=== PATIENT | female | born 1980 | race Caucasian/White ===

== ENCOUNTER 2019-06-21 06:37 | Inpatient (IN) | payer OTHER ==
[~2019-06-21 06:37] MED LIST: CITRIC ACID/SODIUM CITRATE 30 ML UNIT-DOSE CUP PO ONE; ELECTROLYTE-148 SOLN 1,000 ML IV ONE; ELECTROLYTE-148 SOLN 1,000 ML IV SCH
[2019-06-21 07:40] VITALS: BMI 32.8
[2019-06-21] MEDS ORDERED: ONDANSETRON 4 MG/2 ML VIAL IVPUSH PRN (08:03)
[2019-06-21] MEDS ORDERED: OXYTOCIN 20 UNITS in 0.9% NS 20 UNIT/1,000 ML INFUS.BAG IV ONE ×2 (08:05→09:44)
[2019-06-21] MEDS ORDERED: morphine SULFATE/PF 0.5 MG/ML (2cc Syringe - QUVA) ONE (08:10)
[2019-06-21] MEDS ORDERED: ePHEDrine SULFATE 50 MG/1 ML AMPULE ONE (08:11)
--- NOTE | 2019-06-21 08:17 | HP ---
Past Medical History - Primary Care Physician PCP:: Dennys Hinojosa - Admission Chief Complaint: 39yo P2 with at EGA 40w1d admitted for repeat LT C/S and BTL. 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: Alzheimer's, CVA, Dementia, Migraine, Multiple Sclerosis, Peripheral Neuropathy, Parkinson's, Seizure, Syncope, TIA, Vertigo, Other Cardiovascular: No: AFIB, Aneurysm, Aortic Insufficiency, Aortic Stenosis, CAD, CHF, Deep Vein Thrombosis, HTN, Hyperlipdemia, MT, Mitral Insufficiency, Mitral Stenosis, Murmur, Pulmonary Hypertension, Other Pulmonary: No: Asthma, Bronchitis, Cancer, COPD, O2 Dependent, Pneumonia, Previously Intubated, Pulmonary Embolus, Pulmonary Fibrosis, Sleep Apnea, Other Gastrointestinal: No: Ascites, Cancer, Constipation, Crohn's Disease, Diverticulitis, Diverticulosis, Esophageal Varices, Gastritis, GERD, GI Bleed, Hemorrhoids, Hiatal Hernia, Inflamatory Bowel Disease, Irritable Bowel Disease, Pancreatitis, Peptic Ulcer Disease, Ulcerative Colitis, Other Hepatobiliary: No: Cirrhosis, Cholelithiasis, Cholecystitis, Choledocholithiasis , Hepatitis A, Hepatitis B, Hepatitis C, Other Renal/: No: Renal Failure, Renal Inusuff, BPH, Cancer, Hematuria, Hemodialysis , Neurogenic Bladder, Renal Calculi, UTI, Other Reproductive: No: Ectopic , Endometriosis, Fibroids, PID, Polycystic Ovary Syndrome, Postmenopausal, Other ...: 4 ...Para: 2 ...Term: 2 ...: 0 ...Spon : 1 ...Induced : 0 ...Multiple Gestation: 0 ...LMP: 09/13/18 ... Weeks Gestation by Dates: 40.1 ...EDC by Dates: 06/20/19 ...EDC by Sono: 06/20/19 Heme/Onc: No: Anemia, B12 Deficiency, Bleeding Disorder, Cancer, Current Chemotherapy, Current Radiation Therapy, Hemochromatosis, Hypercoaguable State, Myeloproliferative Synd, Sickle Cell Disease, Sickle Cell Trait, Thrombocytopenia, Other Infectious Disease: No: AIDS, C-Diff, Herpes Zoster, HIV, MRSA, STD's, Tuberculosis, VREF, Other Psych: No: Addictions, Anxiety, Bipolar, Depression, Panic, Psychosis, Schizophrenia, Other Musculoskeletal: No: Bursitis, Chronic low back pain, Hemiparesis, Hemiplegia, Osteoarthritis, Paraplegia, Other Rheumatology: No: Fibromyalgia, Gout, Lupus, Rheumatoid Arthritis, Sarcoidosis, Vasculitis, Other ENT: No: Allergic Rhinitis, Sinusitis, Other Endocrine: No: Denver's Disease, Celia's Disease, Diabetes Insipidus, Diabetes Mellitus, Hyperparathyroidism, Hyperthyroidism, Hypothyroidism, Osteopenia, SIADH, Other Dermatology: No: Basal Cell, Cellulitis, Eczema, Melanoma, Psoriasis, Squamous Cell, Other - Past Surgical History Past Surgical History: Yes: (x2) Hx Myomectomy: No Hx Transabdominal Cerclage: No - Smoking History Smoking history: Never smoked Have you smoked in the past 12 months: No - Alcohol/Substance Use Hx Alcohol Use: No History of Substance Use: reports: None - Social History Usual Living Arrangement: Yes: With Spouse, With Child ADL: Independent 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 History of Recent Travel: No Home Medications - Allergies Allergies/Adverse Reactions: Allergies Allergy/AdvReac Type Severity Reaction Status Date / Time No Known Allergies Allergy Verified 10/27/14 10:32 - Home Medications Home Medications: Ambulatory Orders Vitamins (Sjr) - 1 tab PO DAILY 10/27/14 Acetaminophen [Tylenol .Regular Strength -] 650 mg PO Q6H PRN #0 tablet Ibuprofen [Motrin -] 600 mg PO Q6H PRN #0 tablet 11/02/14 Oxycodone HCl/Acetaminophen [Percocet 5-325 mg Tablet -] 1 - 2 tab PO Q6H #20 tab MDD 6 07/05/16 Family Disease History - Family Disease History Family Disease History: Diabetes: Mother (htn), Other: Mother Review of Systems - Review of Systems Constitutional: reports: No Symptoms Eyes: reports: No Symptoms HENT: reports: No Symptoms Neck: reports: No Symptoms Cardiovascular: reports: No Symptoms Respiratory: reports: No Symptoms Gastrointestinal: reports: No Symptoms Genitourinary: reports: No Symptoms Breasts: reports: No Symptoms Reported Musculoskeletal: reports: No Symptoms Integumentary: reports: No Symptoms Neurological: reports: No Symptoms Endocrine: reports: No Symptoms Hematology/Lymphatic: reports: No Symptoms Psychiatric: reports: No Symptoms Pain Intensity: 0 Physical Exam - Maternity Vital Signs: Vital Signs Temperature 98.2 F 06/21/19 07:00 Pulse Rate 83 06/21/19 07:00 Respiratory Rate 18 06/21/19 07:00 Blood Pressure 109/68 06/21/19 07:00 O2 Sat by Pulse Oximetry (%) Constitutional: Yes: Well Nourished, No Distress, Calm Eyes: Yes: WNL, Conjunctiva Clear HENT: Yes: WNL, Atraumatic, Normocephalic Neck: Yes: WNL, Supple, Trachea Midline Cardiovascular: Yes: WNL, Regular Rate and Rhythm Lungs: Clear to auscultation, Normal air movement - Abdominal Exam/OB Fundal Height: 40 Number of Fetuses: Single Presentation: Vertex Contractions: No Heart Rate (range): 120 Heart Rate Location: Midline Category: I Accelerations: Non-Uniform Decelerations: None - Vaginal Exam/OB Vaginal Bleediing: No Speculum Exam: No Presentation: Vertex/Position - Physical Exam Musculoskeletal: Yes: WNL Extremities: Yes: WNL Edema: Yes Edema: LLE: Trace, RLE: Trace Integumentary: Yes: WNL Deep Tendon Reflex Grade: Normal +2 ...Motor Strength: WNL Psychiatric: Yes: WNL, Alert, Oriented Hemorrhage Risk Assessment - Risk Factors Medium Risk Factors: Yes: Prior , uterine surgery,or multiple laparotomies High Risk Factors: Yes: None Risk Score: 1 Risk Level: Medium Risk Imaging - Results Ultrasound: Report Reviewed Assessment/Plan 39yo P2 with at EGA 40w1d admitted for repeat LT C/S and BTL. We discussed the risks and benefits of C/S at length, including but not limited to scarring, pain, bleeding, infection, injury to underlying organs and structures , need for additional surgery to repair/treat any problems or complications, complications/injuries, etc. The pt verbalized her understanding and requested to proceed with surgery. We also discussed the risks and alternatives of BTL, including regret, bleeding, failed sterilization, etc. The pt is aware that all surgeries have risks and no guarantees can be provided.
[2019-06-21] MEDS ORDERED: ELECTROLYTE-148 SOLN 1,000 ML IV SCH (08:30)
[2019-06-21] MEDS ORDERED: ceFAZolin SODIUM 1 GM VIAL ONE (08:37)
[2019-06-21] MEDS ORDERED: WITCH HAZEL 50% (TUCKS) 40 PAD/JAR PAD TP PRN (09:56)
[2019-06-21] MEDS ORDERED: BENZOCAINE 28 GM HEMORRHOIDAL OINTMENT TP PRN (09:56)
[2019-06-21] MEDS ORDERED: BENZOCAINE 20% 57 GM BOTTLE TP PRN (09:56)
[2019-06-21] MEDS ORDERED: OXYTOCIN 20 UNITS in 0.9% NS 20 UNIT/1,000 ML INFUS.BAG IV SCH (10:00)
--- NOTE | 2019-06-21 10:04 | OP ---
Operative Note - Note: Operative Date: 06/21/19 Pre-Operative Diagnosis: Post term at EGA 40w1d. Prior C/S x 2. Sterilization Operation: Repeat LT C/S. BTL Findings: Normal uterus with very thin ROSS Normal tubes and ovaries Live baby boy in VTX presentation, no meconium in amniotic fluids, 9-9, Wt = 7lbs 9oz Post-Operative Diagnosis: Same as Pre-op Surgeon: Denyns Hinojosa Document Restorer: Jeancarlos Borja Anesthesiologist/JOURNALISM INTERN: Kang Fang Anesthesia: Spinal Specimens Removed: Placenta, fragments of Fallopian tubes. Estimated Blood Loss (mls): 700 Drains & Tubes with Location: Hernandez cath Drains, Volume Out (mls): 400 Blood Volume Replaced (mls): 0 Fluid Volume Replaced (mls): 2,000 Operative Report Dictated: Yes
--- NOTE | 2019-06-21 11:27 | OP ---
DATE OF OPERATION: 06/21/2019 PREOPERATIVE DIAGNOSIS: Post term at estimated gestational age of 40 weeks and 1 day, previous 2 sections, sterilization. POSTOPERATIVE DIAGNOSIS: Post term at estimated gestational age of 40 weeks and 1 day, previous 2 sections, sterilization. PROCEDURE: Repeat low transverse section via Pfannenstiel skin incision, bilateral tubal ligation via modified [facility] method. SURGEON: Dennys Hinojosa MD CLAY MIXER: Jeancarlos Borja MD ANESTHESIOLOGIST: Kang Fang DO ANESTHESIA: Spinal. COMPLICATIONS: None. ESTIMATED BLOOD LOSS: 700 mL. INTRAVENOUS FLUIDS: 2000 mL. URINE OUTPUT: 400 mL of clear urine at the end of the procedure. PATHOLOGY: Placenta and fragments of both fallopian tubes. FINDINGS: Live baby boy in vertex presentation with no meconium in amniotic fluid. A nuchal cord was noted to be wrapped around once and was released without complications at delivery. Apgars 9/9. Baby's weight is 7 pounds 9 ounces. DESCRIPTION OF PROCEDURE: The patient was met preoperatively. Risks, benefits, alternatives of surgery were discussed in details. All questions were answered. The consent form was reviewed and signed. The risks of surgery were discussed, and the patient verbalized her understanding. The patient then required to proceed with the surgery. She was brought to the OR with the IV running. The patient was set on a surgical table. The spinal anesthesia was achieved without difficulty. The patient was then placed in a supine position with a leftward tilt. The level of the spinal anesthesia was checked and found to be adequate. The patient was prepped and draped in a usual sterile fashion. A Hernandez catheter was left to drain to gravity. A time-out was conducted as per standard protocol. The surgeons then proceeded with the operation. A Pfannenstiel skin incision was made with the knife along with the prior scar. The incision was taken down to the level of fascia. The fascia was incised in the midline. The incision was extended bilaterally using Mendes scissors. The fascia was then dissected away from the rectus muscles superiorly and inferiorly using sharp dissection. The rectus muscles were in the midline. The peritoneum was identified and entered sharply. The peritoneal incision was extended superiorly and inferiorly using Metzenbaum scissors. The bladder peritoneum was incised over the lower uterine segment. The bladder was then dissected away from the uterus using sharp dissection. The bladder was retracted downwards with the Sylvia retractor. The lower uterine segment was noted to be very thin. The lower uterine segment was incised with a knife. The incision was extended bilaterally using bandage scissors. The baby was delivered from vertex presentation without complications. A loose nuchal cord was noted to be wrapped around once and released without difficulty. The baby was crying spontaneously at delivery. The umbilical cord blood was clamped and cut. A segment of the umbilical cord was secured for umbilical cord blood gas. The baby was handed to the awaiting marketing information analyst. The placenta was removed manually and without complications. The uterus was cleared of all clots and debris. The uterine incision was repaired using a 0 Biosyn suture with a running, locking stitch. The uterine incision was then imbricated using a secondary level of closure with a 0 Biosyn suture. Good hemostasis was confirmed. The bladder peritoneum was then approximated using a 0 Biosyn suture with good hemostasis and approximation. The left fallopian tube was found and followed to the fimbriated end. The midsection of the left fallopian tube was picked up with the Josee clamp. The midsection of the fallopian tube was then suture ligated and excised with good hemostasis. The right fallopian tube was then located and followed to the fimbriated end. The midportion of the right fallopian tube was picked up with the Josee clamps. It was then suture ligated and excised with good hemostasis. The operative site was then irrigated using copious amounts of normal saline. Once the saline was aspirated, good hemostasis was confirmed. The parietal peritoneum was then closed using a 2-0 chromic suture with a running stitch. The rectus muscles were approximated using several interrupted 2-0 chromic sutures. The subcutaneous tissues and Estephanie fascia were approximated using several interrupted 0 Vicryl sutures. The fascia was closed with a 0 Vicryl suture in a running stitch. The skin ACL with a 4-0 Biosyn suture using a subcutaneous stitch. Sponge, lap, and needle counts were correct. The patient tolerated procedure well and she was transferred to recovery room in stable condition and awake. Karina [id number]
[2019-06-21] MEDS: PRENATAL VITAMINS W/ FOLIC ACID TABLET (FP) PO SCH (12:00)
[2019-06-21] MEDS: ENOXAPARIN NA (PORCINE) 40 MG/0.4 ML DISP.SYRIN SQ SCH (12:00)
[2019-06-21] MEDS: IBUPROFEN 800 MG/8 ML IJ IVPB PRN ×2 (12:20→19:35)
[2019-06-21] MEDS: METHYLERGONOVINE MALEATE 0.2 MG/1 ML AMP IM PRN ×2 (15:32→18:50)
[2019-06-22] MEDS: IBUPROFEN 800 MG/8 ML IJ IVPB PRN (03:41)
--- NOTE | 2019-06-22 05:13 | PN ---
Post Progress Note - Subjective Subjective: Patient without acute complaints. No nasea or vomiting, passing flatus. No voiding, mckeon in place draining clear fluid No ambulation yet. Denies fevers or chills. Pain well controlled. Post Day: 1 Type of Delivery: Repeat C/S Vital Signs: Vital Signs Temperature 98.6 F 06/22/19 01:54 Pulse Rate 73 06/22/19 01:54 Respiratory Rate 18 06/22/19 01:54 Blood Pressure 112/62 06/22/19 01:54 O2 Sat by Pulse Oximetry (%) 99 06/21/19 11:25 Breast Exam: Yes: Soft Uterus: Yes: Fundus Firm, Fundus @ umbilicus Incision: Yes: Dressing dry and intact Abdomen/GI: Yes: Abdomen soft, Passing flatus. No: Abdominal Distention, Tender , Tolerating PO Lochia: Yes: Rubra Lochia, amount: Small Extremities: Yes: Calves non-tender, Edema (trace) Activity: Ambulating Assessment/Plan 39 yo POD # 1 s/p repeat CD + BTL, afebrile, vital signs stable doing well 1. Continue routine postoperative care. 2. Follow up AM CBC 3. Rh negative, s/p rhogam 4. Encourage ambulation and incentive spirometer use 5. Continue oral pain medication 6. Anticipate discharge home postoperative day #3 or #4
[2019-06-22 08:26] LABS: BASO % 0.2 % (0-2.0); EOS % 1.1 % (0-4.5); HEMATOCRIT 29.1 % (32.4-45.2); HEMOGLOBIN 9.9 GM/dL (10.7-15.3); LYMPH % 16.7 % (8-40); MCH 30.9 pg (25.7-33.7); MEAN CELL VOLUME 90.7 fl (80-96); MEAN PLT VOLUME 10.2 fl (7.5-11.1); MONO % 7.4 % (3.8-10.2); NEUT % 74.6 % (42.8-82.8); RBC 3.21 M/mm3 (3.60-5.2); WHITE BLOOD COUNT 10.6 K/mm3 (4.0-10.0)
[2019-06-22 08:46] LABS: PLATELET COUNT 132 K/MM3 (134-434)
[2019-06-22] MEDS: PRENATAL VITAMINS W/ FOLIC ACID TABLET (FP) PO SCH (09:13)
[2019-06-22] MEDS: ACETAMINOPHEN 325 MG TABLET (FP) PO PRN ×3 (09:13→20:11)
[2019-06-22] MEDS: ENOXAPARIN NA (PORCINE) 40 MG/0.4 ML DISP.SYRIN SQ SCH (09:14)
[2019-06-22] MEDS: SIMETHICONE 80 MG TAB.CHEW (FP) PO PRN ×2 (09:20→16:09)
[2019-06-22] MEDS ORDERED: BISACODYL 10 MG SUPP.RECT RC PRN (09:57)
[2019-06-22] MEDS: IBUPROFEN 600 MG TABLET (FP) PO PRN ×4 (12:02→23:50)
--- NOTE | 2019-06-22 16:14 | PN ---
Progress Note (short form) - Note Progress Note: Anesthesiology Post-op 39 y.o. woman POD#1 s/p C/S under spinal. Pt. is doing well. Pain under control. No h/a. Spinal resolved. VSS. 39 y.o. woman with stable post-operative course. Continue management as per primary team.
[2019-06-22] MEDS: SENNOSIDES/DOCUSATE COMBO (SENNA PLUS) TABLET (UD) PO PRN (21:18)
--- NOTE | 2019-06-22 22:57 | PN ---
Progress Note (short form) - Note Progress Note: Patient states desires circumcision for . Discussed risks including infection, bleeding, damage to tip of penis, and unsatisfactory result, resulting in surgical repair or repeat circumcision. Patient expressed understanding and consents to procedure. Reviewed infants chart, cleared for circumcision and normal genitalia per retail sales vitamin consultant, Dr. Pereira
[2019-06-22] MEDS: oxyCODONE HCL 5 MG TABLET PO PRN (23:53)
--- NOTE | 2019-06-23 07:06 | PN ---
Post Progress Note - Subjective Subjective: Patient without acute complaints. Reports tolerating oral intake without nausea or vomiting. Ambulating without dizziness. Denies fevers or chills. Pain well controlled with oral pain medication. without difficulty. Passing flatus. Post Day: 2 Type of Delivery: Repeat C/S Vital Signs: Vital Signs Temperature 98.2 F 06/22/19 20:17 Pulse Rate 74 06/22/19 20:17 Respiratory Rate 20 06/22/19 20:17 Blood Pressure 115/65 06/22/19 20:17 O2 Sat by Pulse Oximetry (%) 99 06/21/19 11:25 Breast Exam: Yes: Soft Uterus: Yes: Fundus Firm, Fundus below umbilicus Incision: Yes: Sutures intact. No: Redness, Oozing Abdomen/GI: Yes: Abdomen soft, Abdominal Distention, Tender (mild incisional), Passing flatus, Tolerating PO Lochia: Yes: Rubra Lochia, amount: Moderate Extremities: Yes: Calves non-tender, Edema (trace) Activity: Ambulating - Labs Labs: CBC WBC 10.6 K/mm3 (4.0-10.0) H 06/22/19 07:25 RBC 3.21 M/mm3 (3.60-5.2) L 06/22/19 07:25 Hgb 9.9 GM/dL (10.7-15.3) L 06/22/19 07:25 Hct 29.1 % (32.4-45.2) L D 06/22/19 07:25 MCV 90.7 fl (80-96) 06/22/19 07:25 MCH 30.9 pg (25.7-33.7) 06/22/19 07:25 MCHC 34.0 g/dl (32.0-36.0) 06/22/19 07:25 RDW 14.0 % (11.6-15.6) 06/22/19 07:25 Plt Count 132 K/MM3 (134-434) L 06/22/19 07:25 MPV 10.2 fl (7.5-11.1) 06/22/19 07:25 Absolute Neuts (auto) 7.9 K/mm3 (1.5-8.0) 06/22/19 07:25 Neutrophils % 74.6 % (42.8-82.8) 06/22/19 07:25 Lymphocytes % 16.7 % (8-40) D 06/22/19 07:25 Monocytes % 7.4 % (3.8-10.2) 06/22/19 07:25 Eosinophils % 1.1 % (0-4.5) 06/22/19 07:25 Basophils % 0.2 % (0-2.0) 06/22/19 07:25 Nucleated RBC % 0 % (0-0) 06/22/19 07:25 Assessment/Plan 39 yo POD # 2 s/p repeat CD + BTL, afebrile, vital signs stable doing well 1. Continue routine postoperative care. 2. Encourage ambulation and incentive spirometer use 3. Continue oral pain medication 4. Anticipate discharge home postoperative day #3 or #4
[2019-06-23] MEDS: ACETAMINOPHEN 325 MG TABLET (FP) PO PRN ×4 (07:33→21:04)
[2019-06-23] MEDS: SIMETHICONE 80 MG TAB.CHEW (FP) PO PRN ×4 (07:33→21:03)
[2019-06-23] MEDS: IBUPROFEN 600 MG TABLET (FP) PO PRN ×4 (07:34→21:04)
[2019-06-23] MEDS: ENOXAPARIN NA (PORCINE) 40 MG/0.4 ML DISP.SYRIN SQ SCH (09:45)
[2019-06-23] MEDS: PRENATAL VITAMINS W/ FOLIC ACID TABLET (FP) PO SCH (09:45)
[2019-06-23] MEDS: SENNOSIDES/DOCUSATE COMBO (SENNA PLUS) TABLET (UD) PO PRN (21:07)
[2019-06-23] MEDS: oxyCODONE HCL 5 MG TABLET PO PRN (23:29)
[2019-06-24 07:04] LABS: BASO % 0.4 % (0-2.0); EOS % 2.3 % (0-4.5); HEMATOCRIT 28.9 % (32.4-45.2); MCH 31.3 pg (25.7-33.7); MCHC 34.5 g/dl (32.0-36.0); MEAN CELL VOLUME 90.8 fl (80-96); MEAN PLT VOLUME 9.6 fl (7.5-11.1); NEUT % 58.3 % (42.8-82.8); PLATELET COUNT 176 K/MM3 (134-434); RBC 3.18 M/mm3 (3.60-5.2); RDW 14.3 % (11.6-15.6)
[2019-06-24] MEDS: IBUPROFEN 600 MG TABLET (FP) PO PRN (08:33)
[2019-06-24] MEDS: ACETAMINOPHEN 325 MG TABLET (FP) PO PRN ×3 (08:34→18:14)
[2019-06-24] MEDS: ENOXAPARIN NA (PORCINE) 40 MG/0.4 ML DISP.SYRIN SQ SCH (09:29)
[2019-06-24] MEDS: PRENATAL VITAMINS W/ FOLIC ACID TABLET (FP) PO SCH (09:29)
--- NOTE | 2019-06-24 11:11 | PN ---
Post Progress Note - Subjective Subjective: Doing well. No complaints. Ambulating w/o problems. Urinating w/o problems. Passed flatus and had BM. Pain is well controlled. Breast feeding and supplemented. Post Day: 3 Type of Delivery: Repeat C/S Vital Signs: Vital Signs Temperature 98.2 F 06/24/19 10:00 Pulse Rate 67 06/24/19 10:00 Respiratory Rate 20 06/24/19 10:00 Blood Pressure 109/65 06/24/19 10:00 O2 Sat by Pulse Oximetry (%) 99 06/21/19 11:25 Breast Exam: Yes: Soft Uterus: Yes: Fundus Firm Incision: Yes: Sutures intact Abdomen/GI: Yes: Abdomen soft, Passing flatus, Tolerating PO Lochia: Yes: Rubra Lochia, amount: Small Extremities: Yes: Calves non-tender, Edema (trace) Perineum: Yes: Intact Activity: Ambulating - Labs Labs: CBC WBC 8.0 K/mm3 (4.0-10.0) 06/24/19 06:28 RBC 3.18 M/mm3 (3.60-5.2) L 06/24/19 06:28 Hgb 10.0 GM/dL (10.7-15.3) L 06/24/19 06:28 Hct 28.9 % (32.4-45.2) L 06/24/19 06:28 MCV 90.8 fl (80-96) 06/24/19 06:28 MCH 31.3 pg (25.7-33.7) 06/24/19 06:28 MCHC 34.5 g/dl (32.0-36.0) 06/24/19 06:28 RDW 14.3 % (11.6-15.6) 06/24/19 06:28 Plt Count 176 K/MM3 (134-434) D 06/24/19 06:28 MPV 9.6 fl (7.5-11.1) 06/24/19 06:28 Absolute Neuts (auto) 4.7 K/mm3 (1.5-8.0) 06/24/19 06:28 Neutrophils % 58.3 % (42.8-82.8) D 06/24/19 06:28 Lymphocytes % 33.0 % (8-40) D 06/24/19 06:28 Monocytes % 6.0 % (3.8-10.2) 06/24/19 06:28 Eosinophils % 2.3 % (0-4.5) D 06/24/19 06:28 Basophils % 0.4 % (0-2.0) 06/24/19 06:28 Nucleated RBC % 0 % (0-0) 06/24/19 06:28 Assessment/Plan 39yo P3 POD#3 s/p repeat LTC/S + BTL doing well, stable, afebrile. Asymptomatic for anemia. Post op care reviewed. Continue routine care. Ambulation encouraged Discharge instructions reviewed.
--- NOTE | 2019-06-24 11:14 | DS ---
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 Signs: Vital Signs Temperature 98.2 F 06/24/19 10:00 Pulse Rate 67 06/24/19 10:00 Respiratory Rate 20 06/24/19 10:00 Blood Pressure 109/65 06/24/19 10:00 O2 Sat by Pulse Oximetry (%) 99 06/21/19 11:25 Constitutional: Yes: Well Nourished, No Distress, Calm Eyes: Yes: WNL, Conjunctiva Clear HENT: Yes: WNL, Atraumatic, Normocephalic Neck: Yes: WNL, Supple, Trachea Midline Cardiovascular: Yes: WNL, Regular Rate and Rhythm Respiratory: Yes: WNL, Regular, CTA Bilaterally Gastrointestinal: Yes: WNL, Normal Bowel Sounds, Soft ...Rectal Exam: Yes: Deferred Renal/: Yes: WNL ....Post : Yes: Uterus firm, Uterus non-tender, Slight lochia rubra Breast(s): Yes: WNL Musculoskeletal: Yes: WNL Extremities: Yes: WNL Edema: Yes Edema: LLE: Trace, RLE: Trace Integumentary: Yes: WNL Wound/Incision: Yes: Clean/Dry, Well Approximated, Sutures Intact, Steri Strips , Open to air Neurological: Yes: WNL, Alert, Oriented ...Motor Strength: WNL Psychiatric: Yes: WNL, Alert, Oriented Labs: CBC, BMP 06/24/19 06:28 Delivery - Delivery Section: Repeat, Low Flap Transverse Type of Anesthesia: Spinal Episiotomy/Laceration: None EBL (cc): 700 Delivery, Single - Stages of Labor Date of Delivery: 06/21/19 Time of Delivery: 09:02 Time Placenta Delivered: 09:03 Placenta: Yes: Manual Removal, Normal Configuration - 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 Procedures: Principal: Repeat LT C/S Other Procedures: BTL Hospital Course: Normal postop and recovery Condition: Good - Instructions Diet, Activity, Other Instructions: Physical activity Resume your normal everyday activity as tolerated no heavy lifting or exercise until seen by your surgeon. You may walk unlimited soraya of and climb stairs. You may resume driving the car when you feel safe and comfortable behind the wheel. No sexual activity as instructed. Wound care If you have a bandage, leave it on, and keep dry for 48-72 hours. After that time discard the outer bandage. If they are tapes on the skin under the out of bandage leave them in place. They will peel off in the next 7 to 10 days. Do Not Peel them off. You may shower the day after surgery. If there are tapes present on the skin, you may shower over them. Diet There are no dietary restrictions. Eat healthy, high-fiber foods. Drink 6 to 8 glasses of liquid each day. This will assist in keeping your bowels are regular. Pain management You may take Tylenol or acetaminophen or Ibuprofen (for example, Motrin, Advil etc.) from my pain prescription medication is ordered should be taken as prescribed for moderate to severe pain. Call MD for any of the following: Severe pain not relieved by medication Fever of 101 or higher Excessive bleeding or drainage on dressing Inability to urinate Referrals: Dennys Hinojosa MD [Staff Physician] - Disposition: HOME - Home Medications Comprehensive Discharge Medication List: Ambulatory Orders Vitamins (Sjr) - 1 tab PO DAILY 10/27/14 Acetaminophen [Tylenol .Regular Strength -] 650 mg PO Q6H PRN #0 tablet Ibuprofen [Motrin -] 600 mg PO Q6H PRN #0 tablet 11/02/14 Oxycodone HCl/Acetaminophen [Percocet 5-325 mg Tablet -] 1 - 2 tab PO Q6H #20 tab MDD 6 07/05/16
[2019-06-24] MEDS: IBUPROFEN 200 MG TABLET PO PRN ×3 (12:21→21:58)
[2019-06-24] MEDS: SIMETHICONE 80 MG TAB.CHEW (FP) PO PRN ×2 (18:14→21:58)
[2019-06-24] MEDS ORDERED: oxyCODONE HCL 5 MG TABLET PO PRN (21:35)
[2019-06-25] MEDS: SIMETHICONE 80 MG TAB.CHEW (FP) PO PRN (05:42)
[2019-06-25] MEDS: ACETAMINOPHEN 325 MG TABLET (FP) PO PRN ×2 (05:42→11:13)
[2019-06-25] MEDS: IBUPROFEN 200 MG TABLET PO PRN ×2 (05:42→11:13)
--- NOTE | 2019-06-25 09:53 | PN ---
Post Progress Note - Subjective Subjective: Patient without acute complaints. Reports tolerating oral intake without nausea or vomiting. Ambulating without dizziness. Denies fevers or chills. Pain well controlled with oral pain medication. without difficulty. Passing flatus. Post Day: 4 Type of Delivery: Repeat C/S Vital Signs: Vital Signs Temperature 98.7 F 06/24/19 22:00 Pulse Rate 65 06/24/19 22:00 Respiratory Rate 18 06/24/19 22:00 Blood Pressure 128/71 06/24/19 22:00 O2 Sat by Pulse Oximetry (%) 99 06/21/19 11:25 Breast Exam: Yes: Soft Uterus: Yes: Fundus Firm Incision: Yes: Sutures intact Abdomen/GI: Yes: Abdomen soft, Passing flatus, Tolerating PO Lochia: Yes: Rubra Lochia, amount: Small Extremities: Yes: Calves non-tender Perineum: Yes: Intact Activity: Ambulating - Labs Labs: CBC WBC 8.0 K/mm3 (4.0-10.0) 06/24/19 06:28 RBC 3.18 M/mm3 (3.60-5.2) L 06/24/19 06:28 Hgb 10.0 GM/dL (10.7-15.3) L 06/24/19 06:28 Hct 28.9 % (32.4-45.2) L 06/24/19 06:28 MCV 90.8 fl (80-96) 06/24/19 06:28 MCH 31.3 pg (25.7-33.7) 06/24/19 06:28 MCHC 34.5 g/dl (32.0-36.0) 06/24/19 06:28 RDW 14.3 % (11.6-15.6) 06/24/19 06:28 Plt Count 176 K/MM3 (134-434) D 06/24/19 06:28 MPV 9.6 fl (7.5-11.1) 06/24/19 06:28 Absolute Neuts (auto) 4.7 K/mm3 (1.5-8.0) 06/24/19 06:28 Neutrophils % 58.3 % (42.8-82.8) D 06/24/19 06:28 Lymphocytes % 33.0 % (8-40) D 06/24/19 06:28 Monocytes % 6.0 % (3.8-10.2) 06/24/19 06:28 Eosinophils % 2.3 % (0-4.5) D 06/24/19 06:28 Basophils % 0.4 % (0-2.0) 06/24/19 06:28 Nucleated RBC % 0 % (0-0) 06/24/19 06:28 Assessment/Plan 39yo P3 s/p Repeat c/section VSS, Afebrile Doing well Rh neg - RhoGam given D/C home NPV x 6wks instructed RTO 1 wk for incision check
[2019-06-25] MEDS: PRENATAL VITAMINS W/ FOLIC ACID TABLET (FP) PO SCH (10:08)
[2019-06-25] MEDS: ENOXAPARIN NA (PORCINE) 40 MG/0.4 ML DISP.SYRIN SQ SCH (10:08)
[2019-06-25 11:19] VITALS: BP 140/77; TEMP 98.5
[2019-06-25 11:53] VITALS: PULSE 62
--- NOTE | 2019-07-04 14:24 | PATH ---
Surgical Pathology Report Patient Name: MARK PATTON [facility]. Rec. 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 Specimen(s) Received A: PLACENTA B: PORTION OF LEFT FALLOPIAN TUBE C: PORTION OF RIGHT FALLOPIAN TUBE Clinical History 40.1 weeks x2 Final Diagnosis A. PLACENTA, : MATURE THIRD TRIMESTER PLACENTA (WEIGHT:415 GRAMS) SHOWING MILD ACUTE CHORIOAMNIONITIS AND TRIVESSEL UMBILICAL CORD. B. PORTION OF LEFT FALLOPIAN TUBE, TUBAL LIGATION: COMPLETE CROSS SECTION OF FALLOPIAN TUBE. C. PORTION OF RIGHT FALLOPIAN TUBE, TUBAL LIGATION: COMPLETE CROSS SECTION OF FALLOPIAN TUBE. Electronically Signed Jennifer Jama M.D. Gross Description A. The specimen is received fresh labeled "placenta" and is a 415 gram, 19 x 18 x 1.6 cm. placenta with attached membranes and umbilical cord. The attached membranes are glistening and translucent and insert marginally. The eccentrically attached umbilical cord measures 19 cm. in length and averages 1 cm. in diameter. No true knots or strictures are identified. Cut surface of the umbilical cord reveals 3 vessels. The surface is singh-blue with minimal fibrin deposition and appropriate caliber vessels. The maternal surface is red-brown with focal defects. Sectioning reveals red-brown, spongy parenchyma. No lesions are identified. Gas Analyst sections are submitted in three cassettes as follows: 1- membrane rolls and umbilical cord; 2-3- full thickness sections of placenta. B. Received fresh labeled "portion of left fallopian tube" is a 1.1 cm long by 0.4 cm in diameter portion of tissue consistent with a portion of fallopian tube. The fimbriated end is not identified. Sectioning reveals a pinpoint lumen. Entirely submitted in one cassette. C. Received fresh labeled "portion of right fallopian tube" is a 1.4 cm long by 0.4 cm in diameter portion of tissue consistent with a portion of fallopian tube. The fimbriated end is not identified. Sectioning reveals a pinpoint lumen. Entirely submitted in one cassette. KWAmelia/06/24/2019 aubrey/06/24/2019
== END 2019-06-25 12:50 | disposition home or self-care (01) | DRG 785 ==
LOC: JLDR 06:37 → J3W 11:50
PROVIDERS: ADMIT Obstetrics & Gynecology; ATTEND Obstetrics & Gynecology
PROC: 10D00Z1 Extraction of Products of Conception, Low, Open Approach (ICD-10-PCS; principal; 2019-06-21)
PROC: 0UB70ZZ Excision of Bilateral Fallopian Tubes, Open Approach (ICD-10-PCS; 2019-06-21)
PROC: 3E0334Z Introduction of Serum, Toxoid and Vaccine into Peripheral Vein, Percutaneous Approach (ICD-10-PCS; 2019-06-21)
DX: O34.211 Maternal care for low transverse scar from previous cesarean delivery (principal); N85.8 Other specified noninflammatory disorders of uterus; O48.0 Post-term pregnancy; Z3A.40 40 weeks gestation of pregnancy; Z37.0 Single live birth; Z30.2 Encounter for sterilization; Z29.13 Encounter for prophylactic Rho(D) immune globulin
CPT/HCPCS: 36415; 36600; 82803; 85025; 85461; 86999; 88302-TC; 88307-TC

== ENCOUNTER 2019-06-28 10:48 | Inpatient (IN) | payer OTHER ==
[2019-06-28 11:05] VITALS: BMI 31.6
--- NOTE | 2019-06-28 11:57 | PDOC ---
History of Present Illness - General Chief Complaint: Shortness of Breath Stated Complaint: SOB Time Seen by Provider: 06/28/19 11:09 History Source: Patient Exam Limitations: No Limitations - History of Present Illness Initial Comments: Sunshine Whipple is a 39 yo F with no sig pmh who presents to the [facility] ER after she had a performed on 06/21 - 7 days ago with SOB, difficulty breathing, a dry cough, and difficulty lying flat. The patient had a and BTL on 06/21. 3 days later she began experiencing significant SOB and difficulty breathing. For the past 3 days she has not been able to lie flat on a bed and feels like she is choking if she tries to lie flat. Her symptoms improve when she leans forward. She has also been experiencing a dry cough for the past 3 days. Patient denies fevers, chills, back pain, headache, nausea, vomiting, flank pain , or LOC PCP: None Assistant Commissioner: None OB: Dr. Hinojosa Social Hx: Denies smoking, drinking, or other substance usage. PSH: 1 week prior Allergies: NKA, NKDA Past History - Past Medical History Allergies/Adverse Reactions: Allergies Allergy/AdvReac Type Severity Reaction Status Date / Time No Known Allergies Allergy Verified 06/28/19 11:05 Home Medications: Ambulatory Orders NK [No Known Home Medication] 06/28/19 Asthma: No Cancer: No Cardiac Disorders: No COPD: No Diabetes: No HTN: No Seizures: No Thyroid Disease: No - Surgical History Cholecystectomy: Yes (x3) - Suicide/Smoking/Psychosocial Hx Smoking History: Never smoked Have you smoked in the past 12 months: No Information on smoking cessation initiated: No Hx Alcohol Use: No Drug/Substance Use Hx: No Hx Substance Use Treatment: No Review of Systems - Review of Systems Able to Perform ROS?: Yes Comments:: CONSTITUTIONAL: Present: diaphoresis, generalized weakness, malaise Absent: fever, chills, loss of appetite HEENT: Absent: rhinorrhea, nasal congestion, throat pain, throat swelling, difficulty swallowing, mouth swelling, ear pain, eye pain, visual Changes CARDIOVASCULAR: Present: lightheadedness, peripheral edema Absent: chest pain, syncope, palpitations, irregular heart rate RESPIRATORY: Present: cough, shortness of breath, dyspnea with exertion, orthopnea, wheezing Absent: stridor, hemoptysis GASTROINTESTINAL: Absent: abdominal pain, abdominal distension, nausea, vomiting, diarrhea, constipation, melena, hematochezia GENITOURINARY: Absent: dysuria, frequency, urgency, hesitancy, hematuria, flank pain, genital pain MUSCULOSKELETAL: Absent: myalgia, arthralgia, joint swelling SKIN: Absent: rash, itching, pallor HEMATOLOGIC/IMMUNOLOGIC: Absent: easy bleeding, easy bruising, lymphadenopathy, frequent infections ENDOCRINE: Absent: unexplained weight gain, unexplained weight loss, heat intolerance, cold intolerance NEUROLOGIC: Absent: headache, focal weakness or paresthesias, dizziness, unsteady gait, seizure, mental status changes, bladder or bowel incontinence PSYCHIATRIC: Absent: anxiety, depression, suicidal or homicidal ideation, hallucinations. *Physical Exam - Vital Signs Last Vital Signs Temp Pulse Resp BP Pulse Ox 98.2 F 49 L 16 168/69 95 06/28/19 10:50 06/28/19 10:50 06/28/19 10:50 06/28/19 10:50 06/28/19 11:13 - Physical Exam Comments: GENERAL: Well developed, well nourished. Awake and alert. Mild acute distress. HEENT: Normocephalic, atraumatic. PERRLA, EOMI. No conjunctival pallor. Sclera are non- icteric. Moist mucous membranes. Oropharynx is clear. NECK: Supple. Full ROM. No lymphadenopathy. CARDIOVASCULAR: Bradycardic rate and regular rhythm. No murmurs, rubs, or gallops. Distal pulses are 2+ and symmetric. PULMONARY: There is clear evidence of respiratory distress. B/l gurgles and crackles throughout all lung palmer. No wheezing or rhonchi. ABDOMINAL: Soft. Non-tender. Non-distended. No rebound or guarding. No organomegaly. Normoactive bowel sounds. MUSCULOSKELETAL Normal range of motion at all joints. No bony deformities or tenderness. No CVA tenderness. EXTREMITIES: 2+ pitting edema bilaterally. No cyanosis. No clubbing. No calf tenderness. SKIN: Warm and dry. Normal capillary refill. No rashes. No jaundice. NEUROLOGICAL: Alert, awake, appropriate. No deficits to light touch in face, upper extremities and lower extremities. No motor deficits in the in face, upper extremities and lower extremities. Normal speech. Gait is normal without ataxia. PSYCHIATRIC: Cooperative. Good eye contact. Appropriate mood and affect. ED Treatment Course - LABORATORY CBC & Chemistry Diagram: 06/28/19 11:50 06/28/19 11:50 Medical Decision Making - Medical Decision Making Sunshine Whipple is a 39 yo F with no sig pmh who presents to the [facility] ER after she had a performed on 06/21 - 7 days ago with SOB, difficulty breathing, a dry cough, and difficulty lying flat. The patient had a and BTL on 06/21. 3 days later she began experiencing significant SOB and difficulty breathing. For the past 3 days she has not been able to lie flat on a bed and feels like she is choking if she tries to lie flat. Her symptoms improve when she leans forward. She has also been experiencing a dry cough for the past 3 days. Vital Signs Temp Pulse Resp BP Pulse Ox 98.2 F 52 L 20 143/71 98 06/28/19 10:50 06/28/19 13:15 06/28/19 13:15 06/28/19 13:15 06/28/19 13:15 DDx IBNLT: Most likely cardiomyopathy causing heart failure. Must rule out pre-eclampsia given recent labor and hypertensive state. Urine: Protein negative, supports lower likelihood of pre-eclampsia POCUS Bedside Echo: no pericardial effusion. Global wall motion bradycardia. No large focal wall motion abnormalities. Normal LV/RV ratio. EPSS 10 suggestive of heart failure. POCUS Lungs: There are bilateral diffuse B-lines and bilateral pleural effusions. Normal lung sliding. POCUS IVC: IVC is plump and non-collapsable suggestive of a fluid overload state. OB consult: Dr. Hinojosa is aware of the patient's current condition and will see the patient. Cardio Consult - Dr. Benitez: Spoke in depth and he agrees with current management. Plan: Lasix, nitro, formal echocardiogram, admit to telemetry. *DC/Admit/Observation/Transfer Diagnosis at time of Disposition: cardiomyopathy - Discharge Dispostion Condition at time of disposition: Guarded Decision to Admit order: Yes - Referrals Referrals: Dennys Hinojosa MD [Primary Care Provider] - - Patient Instructions - Post Discharge Activity
[2019-06-28 12:10] LABS: BASO % 0.4 % (0-2.0); EOS % 1.8 % (0-4.5); HEMATOCRIT 30.4 % (32.4-45.2); HEMOGLOBIN 10.4 GM/dL (10.7-15.3); LYMPH % 20.4 % (8-40); MCH 31.2 pg (25.7-33.7); MCHC 34.3 g/dl (32.0-36.0); MEAN PLT VOLUME 9.1 fl (7.5-11.1); NEUT % 72.4 % (42.8-82.8); PLATELET COUNT 221 K/MM3 (134-434); RBC 3.34 M/mm3 (3.60-5.2); RDW 14.3 % (11.6-15.6); WHITE BLOOD COUNT 8.6 K/mm3 (4.0-10.0)
--- NOTE | 2019-06-28 12:15 | PDOC ---
Documentation entered by Tiffanie Kevin SCRIBE, acting as scribe for Shantelle Guadalupe MD. Shantelle Guadalupe MD: This documentation has been prepared by the scribe, Tiffanie Kevin SCRIBE, under my direction and personally reviewed by me in its entirety. I confirm that the documentation accurately reflects all work, treatment, procedures, and medical decision making performed by me. Attending Attestation - Resident Resident Name: Juan Carlos Pérez - ED Attending Attestation I have performed the following: I have examined & evaluated the patient, The case was reviewed & discussed with the resident, I agree w/resident's findings & plan, Exceptions are as noted - HPI HPI: 06/28/19 11:48 The patient is a 39-year-old female who presents to the ED with shortness of breath, cough B/L LE swelling s/p 1 week ago, performed by Dr. Hinojosa. + orthopnea, + LOMELI. + shortness of breath at rest. No complications during her . Denies history of hypertension. Denies chest pain. Reports intermittent mild headache, but not currently having headache. Denies visual complaints. 06/28/19 12:06 06/28/19 12:12 - Physicial Exam PE: 06/28/19 11:48 GENERAL: Awake, alert, and fully oriented, in no acute distress HEAD: No signs of trauma EYES: PERRLA, EOMI, sclera anicteric, conjunctiva clear ENT: Auricles normal inspection, hearing grossly normal, nares patent, oropharynx clear without exudates. Moist mucosa LUNGS: Breath sounds equal, decreased air entry bilaterally. No wheezes, and no crackles HEART: Regular rate and rhythm, normal S1 and S2, no murmurs, bradycardic ABDOMEN: Soft, nontender, normoactive bowel sounds. No guarding, no rebound. No masses EXTREMITIES: Normal range of motion, + edema b/l No clubbing or cyanosis. No cords, erythema, or tenderness NEUROLOGICAL: Cranial nerves II through XII grossly intact. Normal speech SKIN: Warm, Dry, normal turgor, no rashes or lesions noted. 06/28/19 12:10 - Medical Decision Making 06/28/19 12:11 Pt presents to the ED complaining of shortness of breath. Differential includes post cardiomyopathy, less likely PE, less likely pre eclampsia. Will check labs and cardiac enzymes, CXR, admit. Will treat with lasix if CXR shows evidence of CHF. 06/28/19 12:14
[2019-06-28 12:34] LABS: ALBUMIN 2.6 g/dl (3.4-5.0); BILIRUBIN,TOTAL 0.5 mg/dL (0.2-1); BLOOD UREA NITROGEN 13.5 mg/dL (7-18); CALCIUM 8.4 mg/dL (8.5-10.1); CREATININE 0.7 mg/dL (0.55-1.3); N-TERMINAL BNP 1189.4 pg/ml (5-125); POTASSIUM 3.6 mmol/L (3.5-5.1); TOT PROT 5.8 g/dl (6.4-8.2)
[2019-06-28 12:41] LABS: EPI CELLS 3.2 /HPF (0-5/HPF); HYALINE CASTS 1 /lpf (0-8); URINE APPEARANCE Error; URINE BACTERIA 21.7 /hpf (NEGATIVE); URINE BILIRUBIN NEGATIVE (NEGATIVE); URINE COLOR YELLOW; URINE GLUCOSE (UA) NEGATIVE (NEGATIVE); URINE KETONE NEGATIVE (NEGATIVE); URINE LEUK ESTERASE 1+ (NEGATIVE); URINE NITRITE NEGATIVE (NEGATIVE); URINE PROTEIN NEGATIVE (NEGATIVE); URINE RBC 1 /hpf (0-4); URINE WBC 4 /hpf (0-5)
[2019-06-28] MEDS ORDERED: NITROGLYCERIN SUBLINGUAL 1/150 0.4 MG TAB SL ONE (12:58)
[2019-06-28] MEDS ORDERED: FUROSEMIDE 40 MG/4 ML INJECTABLE VIAL IVPUSH ONE (12:58)
[2019-06-28] MEDS ORDERED: NITROGLYCERIN SUBLINGUAL 1/150 0.4 MG TAB ONE (13:06)
[2019-06-28] MEDS ORDERED: FUROSEMIDE 40 MG/4 ML INJECTABLE VIAL ONE (13:06)
--- NOTE | 2019-06-28 14:54 | CON.CARD ---
Cardiology Consult (text) - Consultation Consultation Note: cc: sob hpi: 39 f no sig pmhx here with sob. Last week has and then over next few days noticed randolph, le edema, orthopnea. Sxs progressed over past few days so came to er. No cp, palps, dizzy loc pnd. No hx hrt dz or chf. pmh: per hpi psh: social: no tob fam: mom mi late 50s; no scd ros: per hpi; all others nl meds: Home Medications Medication Instructions Recorded NK [No Known Home Medication] 06/28/19 pe: Vital Signs Period Temp Pulse Resp BP Sys/Min Pulse Ox Last 24 Hr 98.2 F 49-52 16-20 136-168/69-89 95-100 nad no jvd rrr s1s2 no mrg cta bl nl eff aao3 1+le edema bl, no c/c abd nt nd pos bs no jaundice diaphoresis pos dp pt no carotid bruits Laboratory Last Values WBC 8.6 K/mm3 (4.0-10.0) 06/28/19 11:50 RBC 3.34 M/mm3 (3.60-5.2) L 06/28/19 11:50 Hgb 10.4 GM/dL (10.7-15.3) L 06/28/19 11:50 Hct 30.4 % (32.4-45.2) L 06/28/19 11:50 MCV 91.0 fl (80-96) 06/28/19 11:50 MCH 31.2 pg (25.7-33.7) 06/28/19 11:50 MCHC 34.3 g/dl (32.0-36.0) 06/28/19 11:50 RDW 14.3 % (11.6-15.6) 06/28/19 11:50 Plt Count 221 K/MM3 (134-434) D 06/28/19 11:50 MPV 9.1 fl (7.5-11.1) 06/28/19 11:50 Absolute Neuts (auto) 6.2 K/mm3 (1.5-8.0) 06/28/19 11:50 Neutrophils % 72.4 % (42.8-82.8) D 06/28/19 11:50 Lymphocytes % 20.4 % (8-40) D 06/28/19 11:50 Monocytes % 5.0 % (3.8-10.2) 06/28/19 11:50 Eosinophils % 1.8 % (0-4.5) 06/28/19 11:50 Basophils % 0.4 % (0-2.0) 06/28/19 11:50 Nucleated RBC % 0 % (0-0) 06/28/19 11:50 Sodium 145 mmol/L (136-145) 06/28/19 11:50 Potassium 3.6 mmol/L (3.5-5.1) 06/28/19 11:50 Chloride 114 mmol/L (98-107) H 06/28/19 11:50 Carbon Dioxide 23 mmol/L (21-32) 06/28/19 11:50 Anion Gap 7 MMOL/L (8-16) L 06/28/19 11:50 BUN 13.5 mg/dL (7-18) 06/28/19 11:50 Creatinine 0.7 mg/dL (0.55-1.3) 06/28/19 11:50 Est GFR (CKD-EPI)AfAm 127.39 06/28/19 11:50 Est GFR (CKD-EPI)NonAf 109.91 06/28/19 11:50 Random Glucose 99 mg/dL (74-106) 06/28/19 11:50 Calcium 8.4 mg/dL (8.5-10.1) L 06/28/19 11:50 Total Bilirubin 0.5 mg/dL (0.2-1) 06/28/19 11:50 AST 26 U/L (15-37) 06/28/19 11:50 ALT 43 U/L (13-61) 06/28/19 11:50 Alkaline Phosphatase 126 U/L (45-117) H 06/28/19 11:50 Troponin I < 0.02 ng/ml (0.00-0.05) 06/28/19 11:50 B-Natriuretic Peptide 1189.4 pg/ml (5-125) H 06/28/19 11:50 Total Protein 5.8 g/dl (6.4-8.2) L 06/28/19 11:50 Albumin 2.6 g/dl (3.4-5.0) L 06/28/19 11:50 Urine Color Yellow 06/28/19 12:13 Urine Appearance Error 06/28/19 12:13 Urine pH 6.0 (5.0-8.0) 06/28/19 12:13 Ur Specific [place] 1.021 (1.010-1.035) 06/28/19 12:13 Urine Protein Negative (NEGATIVE) 06/28/19 12:13 Urine Glucose (UA) Negative (NEGATIVE) 06/28/19 12:13 Urine Ketones Negative (NEGATIVE) 06/28/19 12:13 Urine Blood 2+ (NEGATIVE) H 06/28/19 12:13 Urine Nitrite Negative (NEGATIVE) 06/28/19 12:13 Urine Bilirubin Negative (NEGATIVE) 06/28/19 12:13 Urine Urobilinogen 1.0 mg/dL (0.2-1.0) 06/28/19 12:13 Ur Leukocyte Esterase 1+ (NEGATIVE) H 06/28/19 12:13 Urine WBC (Auto) 4 /hpf (0-5) 06/28/19 12:13 Urine RBC (Auto) 1 /hpf (0-4) 06/28/19 12:13 Urine Casts (Auto) 1 /lpf (0-8) 06/28/19 12:13 U Epithel Cells (Auto) 3.2 /HPF (0-5/HPF) 06/28/19 12:13 Urine Bacteria (Auto) 21.7 /hpf (NEGATIVE) 06/28/19 12:13 Urine HCG, Qual Positive 06/28/19 12:13 cxr: mild congestive changes ecg: sr nl intervals no ischemic changes echo 05/2019: nl lv/rv, mild mr, mild tr, possible bicuspid av, mild-mod ar a/p: 39 f no sig pmhx here with sob. sob: -echo shows nl biventricular size/function so does not appear to be cardiomyopathy -she does have some mild volume overload, possibly from periop ivfs or recent so would continue with lasix 40 iv qd, daily chem7 AR: -echo incidentally shows likely bicuspid av with mild-mod ar. This should be monitored as outpt with cardiology.
--- NOTE | 2019-06-28 15:26 | HP ---
CHIEF COMPLAINT: SOB PCP: None HISTORY OF PRESENT ILLNESS: 39 y/o F with recent + B/L Tubal ligation on 06/21/19 and no other significant PMHx presents with SOB. Patient mentions her recent and delivery was normal without any complications. On the evening of , patient felt sudden onset SOB when attempting to lay flat. Since then, the SOB has persisted requiring the patient to keep the head of her bed elevated and inability to lay supine. A few days later, she also started having a nonproductive cough. She has not tried any interventions and given that her SOB worsened where she felt she could not catch her breath prompting her to visit [facility]. This is the 1st time she has experienced these sx's. Since her operation , she has also hab b/l LE swelling and feelings of fatigue. Of note, patient is currently breast and bottle feeding. Denies any recent fevers, chills, nausea, vomiting, diarrhea, constipation, dysuria, hematuria, hematochezia, hemoptysis. ER course was notable for: (1) IV Furosemide, SL Nitro (2) Cardio, OBGyn Consult (3) Recent Travel: Denies PAST MEDICAL HISTORY: Denies PAST SURGICAL HISTORY: x 3 (Most recently on 06/21/19) B/L Tubal ligation (on 06/21/19) Social History: Smokin hookah daily since early , stopped prior to Alcohol: Occasional Drugs: Denies Residence: Home with , 3 children Ambulation: without assistance Occupation: [employer] Family History: M: HTN, DM, CAD requiring stents, Hemophagocytic LymphoHistiocytosis F: CAD requiring stents Allergies No Known Allergies Allergy (Verified 06/28/19 11:05) HOME MEDICATIONS: Home Medications Medication Instructions Recorded NK [No Known Home Medication] 06/28/19 REVIEW OF SYSTEMS As per HPI PHYSICAL EXAMINATION Vital Signs - 24 hr 06/28/19 06/28/19 06/28/19 10:50 11:13 12:01 Temperature 98.2 F Pulse Rate 49 L Pulse Rate [ 52 L Left Radial] Respiratory 16 16 Rate Blood Pressure 168/69 Blood Pressure 136/89 [Left Arm] O2 Sat by Pulse 100 95 98 Oximetry (%) 06/28/19 06/28/19 12:02 13:15 Temperature Pulse Rate Pulse Rate [ 52 L Left Radial] Respiratory 20 Rate Blood Pressure Blood Pressure 143/71 [Left Arm] O2 Sat by Pulse 98 98 Oximetry (%) GENERAL: A&Ox3, NAD HEAD: NCAT EYES: PERRL, EOMI EARS, NOSE, THROAT: Oropharynx clear without exudates. Moist mucous membranes. NECK: Supple, No JVD LUNGS: [place] Crackles L>R, No wheezes. No accessory muscle use. HEART: Bradycardic, S1 S2 ABDOMEN: Soft, nontender, not distended, + bowel sounds, no guarding, no rebound MUSCULOSKELETAL: No CVA tenderness. EXTREMITIES: B/L 2+ pitting edema NEUROLOGICAL: Cranial nerves II-XII intact. Normal speech. Gross sensation intact throughout. 5/5 Muscle strength throughout. SKIN: Warm, dry Laboratory Results - last 24 hr 06/28/19 06/28/19 06/28/19 11:50 11:50 11:50 WBC 8.6 RBC 3.34 L Hgb 10.4 L Hct 30.4 L MCV 91.0 MCH 31.2 MCHC 34.3 RDW 14.3 Plt Count 221 D MPV 9.1 Absolute Neuts (auto) 6.2 Neutrophils % 72.4 D Lymphocytes % 20.4 D Monocytes % 5.0 Eosinophils % 1.8 Basophils % 0.4 Nucleated RBC % 0 Sodium 145 Potassium 3.6 Chloride 114 H Carbon Dioxide 23 Anion Gap 7 L BUN 13.5 Creatinine 0.7 Est GFR (CKD-EPI)AfAm 127.39 Est GFR (CKD-EPI)NonAf 109.91 Random Glucose 99 Calcium 8.4 L Total Bilirubin 0.5 AST 26 ALT 43 Alkaline Phosphatase 126 H Troponin I < 0.02 B-Natriuretic Peptide 1189.4 H Total Protein 5.8 L Albumin 2.6 L Urine Color Urine Appearance Urine pH Ur Specific [place] Urine Protein Urine Glucose (UA) Urine Ketones Urine Blood Urine Nitrite Urine Bilirubin Urine Urobilinogen Ur Leukocyte Esterase Urine WBC (Auto) Urine RBC (Auto) Urine Casts (Auto) U Epithel Cells (Auto) Urine Bacteria (Auto) Urine HCG, Qual 06/28/19 06/28/19 12:13 12:13 WBC RBC Hgb Hct MCV MCH MCHC RDW Plt Count MPV Absolute Neuts (auto) Neutrophils % Lymphocytes % Monocytes % Eosinophils % Basophils % Nucleated RBC % Sodium Potassium Chloride Carbon Dioxide Anion Gap BUN Creatinine Est GFR (CKD-EPI)AfAm Est GFR (CKD-EPI)NonAf Random Glucose Calcium Total Bilirubin AST ALT Alkaline Phosphatase Troponin I B-Natriuretic Peptide Total Protein Albumin Urine Color Yellow Urine Appearance Error Urine pH 6.0 Ur Specific [place] 1.021 Urine Protein Negative Urine Glucose (UA) Negative Urine Ketones Negative Urine Blood 2+ H Urine Nitrite Negative Urine Bilirubin Negative Urine Urobilinogen 1.0 Ur Leukocyte Esterase 1+ H Urine WBC (Auto) 4 Urine RBC (Auto) 1 Urine Casts (Auto) 1 U Epithel Cells (Auto) 3.2 Urine Bacteria (Auto) 21.7 Urine HCG, Qual Positive Active Medications Furosemide (Lasix Injection -) 40 mg IVPUSH DAILY CHARANJIT Heparin Sodium (Porcine) (Heparin -) 5,000 unit SQ TID CHARANJIT IMAGING: -CXR: A single AP of the chest reveals a weak inspiration with prominent mediastinum, congestive changes and fluid in the horizontal fissure. The bones and soft tissues are intact. Correlation recommended. ASSESSMENT/PLAN: 39 y/o F with recent + B/L Tubal ligation on 06/21/19 and no other significant PMHx presents with SOB. #SOB -Likely due to fluid overload; Still must consider cardiomyopathy in the setting of recent of . -Give IV Furosemide 40mg x1 and SL Nitro in ED -EKG reveals Sinus rhythm, No ST segment changes -CXR reveals congestive changes and fluid in the horizontal fissure -Echo: LVEF 50-55%. LV Systolic function is normal, RV is normal in size and function, Mild MR and TR, Mild to moderate TR, No pericardial Effusion -BNP 1189, Trop < 0.02 -IV Furosemide 40mg Daily -Cardiology (Dr. Bosch) consulted -OBGyn (Dr. Hinojosa) consulted -Currently on RA; Supplemental O2 to maintain SpO2 >92% -Monitor Urine Output, Cr -Daily wieght, strict I&Os -Tele #Elevated BP -No hx of HTN; isolated episode of elevated BP -BP improved after IV Furosemide dose and SL Nitro -Monitor closely, can consider adding IV Furosemide 20mg if BP elevates #Normocytic Normochromic Anemia -In the setting of fluid overload and recent surgical procedure (EBL 700ml) -Trend H&H -Continue to monitor for signs of bleeding #Elevated Alk Phos -Trend, If continues to rise will consider further imaging #FEN -No standing fluids -Lytes WNL, Replete PRN -Regular diet #PPx -DVT: Heparin SQ Dispo: Admit to Tele Visit type - Emergency Visit Emergency Visit: Yes ED Registration Date: 06/28/19 Care time: The patient presented to the Emergency Department on the above date and was hospitalized for further evaluation of their emergent condition. - New Patient This patient is new to me today: Yes Date on this admission: 07/01/19 - Critical Care Critical Care patient: No ATTENDING PHYSICIAN STATEMENT I saw and evaluated the patient. I reviewed the resident's note and discussed the case with the resident. I agree with the resident's findings and plan as documented. SUBJECTIVE: OBJECTIVE: ASSESSMENT AND PLAN:
--- NOTE | 2019-06-28 15:33 | ECHO ---
Name: MARK PATTON Exam:Adult Echocardiogram Study Date: 06/28/2019 02:15 PM Age: 39 yrs Reason For Study: cardiomyopathy Height: 65 in Weight: 190 lb BSA: 1.9 m2 MMode/2D Measurements & Calculations IVSd: 0.92 cm Ao root diam: 3.1 cm LVIDd: 5.1 cm LA dimension: 2.5 cm LVIDs: 3.7 cm LVPWd: 1.0 cm LVPWs: 1.0 cm EDV(Teich): 125.5 ml ESV(Teich): 57.9 ml LVOT diam: 2.2 cm LAV (MOD-bp): 54.4 ml RV S Justin: 16.0 cm/sec Doppler Measurements & Calculations MV E max justin: 119.0 cm/sec Ao V2 max: 191.1 cm/sec MV A max justin: 76.6 cm/sec Ao max P.6 mmHg MV E/A: 1.6 Ao V2 mean: 126.4 cm/sec MV dec time: 0.24 sec Ao mean P.6 mmHg Ao V2 VTI: 44.1 cm JAZMIN(I,D): 2.4 cm2 AI P1/2t: 518.0 msec JAZMIN(V,D): 2.0 cm2 AI max justin: 356.7 cm/sec LV V1 max P.3 mmHg AI max P.9 mmHg LV V1 mean P.3 mmHg AI dec slope: 201.7 cm/sec2 LV V1 max: 103.3 cm/sec LV V1 mean: 72.0 cm/sec LV V1 VTI: 28.9 cm SV(LVOT): 107.8 ml PA V2 max: 108.6 cm/sec PA max P.7 mmHg Med Peak E' Justin: 7.1 cm/sec Med E/e': 16.8 Lat Peak E' Justin: 8.9 cm/sec Lat E/e': 13.3 Left Ventricle The left ventricle is normal in size. Left ventricular systolic function is normal. Ejection Fraction = 50- 55%. Left Ventricular Filling pattern is normal for age. The left ventricular wall motion is normal. Right Ventricle The right ventricle is normal in size and function. Atria Normal left and right atrial size and function. Right atrial size is normal. The interatrial septum i s intact with no evidence for an atrial septal defect. Mitral Valve The mitral valve is normal in structure and function. There is no mitral valve stenosis. There is mil d mitral regurgitation. Tricuspid Valve The tricuspid valve is normal. There is no tricuspid stenosis. There is mild tricuspid regurgitation. Right ventricular systolic pressure is normal. Aortic Valve A bicuspid aortic valve cannot be excluded. No hemodynamically significant valvular aortic stenosis. Mild to moderate aortic regurgitation. Pulmonic Valve The pulmonic valve is not well seen, but is grossly normal. There is no pulmonic valvular stenosis. T race pulmonic valvular regurgitation. Great Vessels The aortic root is normal size. Pericardium/Pleura There is no pericardial effusion. Interpretation Summary Left ventricular systolic function is normal. Ejection Fraction = 50-55%. Left Ventricular Filling pattern is normal for age. The right ventricle is normal in size and function. There is mild mitral regurgitation. There is mild tricuspid regurgitation. A bicuspid aortic valve cannot be excluded. Mild to moderate aortic regurgitation. There is no pericardial effusion. MD Regalado *Eli 06/28/2019 03:32 PM
--- NOTE | 2019-06-28 16:23 | PN ---
Teaching Attending Note Name of Resident: Yusra Navarro ATTENDING PHYSICIAN STATEMENT I saw and evaluated the patient. I reviewed the resident's note and discussed the case with the resident. I agree with the resident's findings and plan as documented. SUBJECTIVE: Patient is a 39 y/o F with recent + B/L Tubal ligation on 06/21 and no other significant PMHx presents with SOB. OBJECTIVE: Vital Signs Temperature 98.1 F 06/28/19 15:16 Pulse Rate 50 L 06/28/19 15:16 Respiratory Rate 18 06/28/19 15:16 Blood Pressure 139/72 06/28/19 15:16 O2 Sat by Pulse Oximetry (%) 99 06/28/19 15:16 GENERAL: The patient is awake, alert, and fully oriented, in no acute distress. HEAD: Normal with no signs of trauma. EYES: PERRL, extraocular movements intact, sclera anicteric, conjunctiva clear. ENT: Ears normal, oropharynx clear without exudates, moist mucous membranes. NECK: Trachea midline, full range of motion, supple. LUNGS:decreased Breath sounds bl, positive for minimal rales, no wheezes, no crackles, no accessory muscle use. HEART: Regular rate and rhythm, S1, S2 without murmur, rub or gallop. ABDOMEN: Soft, nontender, recent , normoactive bowel sounds, no guarding, no rebound, no hepatosplenomegaly, no masses. EXTREMITIES: 2+ pulses, warm, well-perfused, no edema. NEUROLOGICAL: Cranial nerves II through XII grossly intact. Normal speech, gait not observed. PSYCH: Normal mood, normal affect. SKIN: Warm, dry, normal turgor, no rashes or lesions noted CBCD WBC 8.6 K/mm3 (4.0-10.0) 06/28/19 11:50 RBC 3.34 M/mm3 (3.60-5.2) L 06/28/19 11:50 Hgb 10.4 GM/dL (10.7-15.3) L 06/28/19 11:50 Hct 30.4 % (32.4-45.2) L 06/28/19 11:50 MCV 91.0 fl (80-96) 06/28/19 11:50 MCHC 34.3 g/dl (32.0-36.0) 06/28/19 11:50 RDW 14.3 % (11.6-15.6) 06/28/19 11:50 Plt Count 221 K/MM3 (134-434) D 06/28/19 11:50 MPV 9.1 fl (7.5-11.1) 06/28/19 11:50 CMP Sodium 145 mmol/L (136-145) 06/28/19 11:50 Potassium 3.6 mmol/L (3.5-5.1) 06/28/19 11:50 Chloride 114 mmol/L (98-107) H 06/28/19 11:50 Carbon Dioxide 23 mmol/L (21-32) 06/28/19 11:50 Anion Gap 7 MMOL/L (8-16) L 06/28/19 11:50 BUN 13.5 mg/dL (7-18) 06/28/19 11:50 Creatinine 0.7 mg/dL (0.55-1.3) 06/28/19 11:50 Random Glucose 99 mg/dL (74-106) 06/28/19 11:50 Calcium 8.4 mg/dL (8.5-10.1) L 06/28/19 11:50 Total Bilirubin 0.5 mg/dL (0.2-1) 06/28/19 11:50 AST 26 U/L (15-37) 06/28/19 11:50 ALT 43 U/L (13-61) 06/28/19 11:50 Alkaline Phosphatase 126 U/L (45-117) H 06/28/19 11:50 Total Protein 5.8 g/dl (6.4-8.2) L 06/28/19 11:50 Albumin 2.6 g/dl (3.4-5.0) L 06/28/19 11:50 CARDIAC ENZYMES Troponin I < 0.02 ng/ml (0.00-0.05) 06/28/19 11:50 Current Medications Generic Name Dose Route Start Last Admin Trade Name Freq PRN Reason Stop Dose Admin Furosemide 40 mg 06/29/19 10:00 Lasix Injection - IVPUSH DAILY CHARANJIT Heparin Sodium (Porcine) 5,000 unit 06/28/19 22:00 Heparin - SQ TID CHARANJIT Home Medications Medication Instructions Recorded NK [No Known Home Medication] 06/28/19 Echo:Left ventricular systolic function is normal, EJF=50-55%, LV filling is normal for age, right ventricle is normal is size, mild mitral regurg. mild TR, bicuspid aortic valve briana't be excluded. mild to moderate AR, No pericardial effusion. CXR: A single AP of the chest reveals a weak inspiration with prominent mediastinum, congestive changes and fluid in the horizontal fissure. The bones and soft tissues are intact. Correlation recommended. ASSESSMENT AND PLAN: 39 y/o F with recent + B/L Tubal ligation on 06/21/19 and no other significant PMHx presents with SOB. # Acute shortness of breath ;No CM on the echo., will place the patient on lasix IV , discussed with cardio. daily assessment. Cardio dr. Shane consulted. #Hx of BP: controlled at this time mandy monitor #Normocytic Normochromic Anemia: Stable #Elevated Alk Phos: will monitor -DVT: Heparin SQ
--- NOTE | 2019-06-28 17:39 | CON.OBG ---
Consult Consult Specialty:: INTERNET ASSESSOR Referred by:: Dr. Hernandez Reason for Consultation:: 39yo P3 with SOB and orthopnea x 2-3 days - History of Present Illness Chief Complaint: SOB and orthopnea x 2-3 days. Cough occasionally. History of Present Illness: Pt is s/p repeat LT C/S and BTL on 06/21/2019 with uncomplicated surgical and immediate course. She reports SOB that got worse for the last 3 days and she cntacted the office today reporting SOB that is worse lying down, occasional cough, pain with coughing only. No hemoptysis or chest pain. The pt was advised to com to the ER. She was admitted with suspected cardiomyopathy. 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: Alzheimer's, CVA, Dementia, Migraine, Multiple Sclerosis, Peripheral Neuropathy, Parkinson's, Seizure, Syncope, TIA, Vertigo, Other Cardio/Vascular: No: AFIB, Aneurysm, Aortic Insufficiency, Aortic Stenosis, CAD , CHF, Deep Vein Thrombosis, HTN, Hyperlipdemia, FL, Mitral Insufficiency, Mitral Stenosis, Murmur, Pulmonary Hypertension, Other Pulmonary: No: Asthma, Bronchitis, Cancer, COPD, O2 Dependent, Pneumonia, Previously Intubated, Pulmonary Embolus, Pulmonary Fibrosis, Sleep Apnea, Other Gastrointestinal: No: Ascites, Cancer, Constipation, Crohn's Disease, Diverticulitis, Diverticulosis, Esophageal Varices, Gastritis, GERD, GI Bleed, Hemorrhoids, Hiatal Hernia, Inflamatory Bowel Disease, Irritable Bowel Disease, Pancreatitis, Peptic Ulcer Disease, Ulcerative Colitis, Other Hepatobiliary: No: Cirrhosis, Cholelithiasis, Cholecystitis, Choledocholithiasis , Hepatitis A, Hepatitis B, Hepatitis C, Other Renal/: No: Renal Failure, Renal Inusuff, BPH, Cancer, Hematuria, Hemodialysis , Neurogenic Bladder, Renal Calculi, UTI, Other ...: No ...Para: 3 Heme/Onc: Yes: Anemia Infectious Disease: No: AIDS, C-Diff, Herpes Zoster, HIV, MRSA, STD's, Tuberculosis, VREF, Other Psych: No: Addictions, Anxiety, Bipolar, Depression, Panic, Psychosis, Schizophrenia, Other Musculoskeletal: No: Bursitis, Chronic low back pain, Hemiparesis, Hemiplegia, Osteoarthritis, Paraplegia, Other Rheumatology: No: Fibromyalgia, Gout, Lupus, Rheumatoid Arthritis, Sarcoidosis, Vasculitis, Other ENT: No: Allergic Rhinitis, Sinusitis, Other Endocrine: No: Chun's Disease, Ojibwa's Disease, Diabetes Insipidus, Diabetes Mellitus, Hyperparathyroidism, Hyperthyroidism, Hypothyroidism, Osteopenia, SIADH, Other Dermatology: No: Basal Cell, Cellulitis, Eczema, Melanoma, Psoriasis, Squamous Cell, Other - Past Surgical History Past Surgical History: Yes: (x 3), Tubal Ligation - Alcohol/Substance Use Hx Alcohol Use: No History of Substance Use: reports: None - Smoking History Smoking history: Never smoked Have you smoked in the past 12 months: No - Social History Usual Living Arrangement: With Spouse ADL: Independent 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 Place of : [employer] [employer] History of Recent Travel: No Home Medications - Allergies Allergies/Adverse Reactions: Allergies Allergy/AdvReac Type Severity Reaction Status Date / Time No Known Allergies Allergy Verified 06/28/19 11:05 - Home Medications Home Medications: Ambulatory Orders Hydralazine HCl 10 mg PO BID #30 tablet 06/30/19 Family Disease History - Family Disease History Family Disease History: Diabetes: Mother (htn), Other: Mother Review of Systems - Review of Systems Constitutional: reports: No Symptoms Eyes: reports: No Symptoms Neck: reports: No Symptoms Cardiovascular: reports: Edema, Shortness of Breath Respiratory: reports: Cough, Orthopnea, SOB Gastrointestinal: reports: No Symptoms Genitourinary: reports: No Symptoms, Vaginal Bleeding (lochia mild) Breasts: reports: No Symptoms Reported, Other (lactating normally) Musculoskeletal: reports: No Symptoms Integumentary: reports: No Symptoms Neurological: reports: No Symptoms Endocrine: reports: No Symptoms Hematology/Lymphatic: reports: No Symptoms Psychiatric: reports: No Symptoms Pain Intensity: 0 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 Vital Signs: Vital Signs Temperature 98.4 F 06/28/19 16:06 Pulse Rate 46 L 06/28/19 16:06 Respiratory Rate 18 06/28/19 16:06 Blood Pressure 158/76 06/28/19 16:06 O2 Sat by Pulse Oximetry (%) 99 06/28/19 16:06 Constitutional: Yes: Well Nourished, No Distress, Calm Eyes: Yes: WNL, Conjunctiva Clear, EOM Intact HENT: Yes: WNL, Atraumatic, Normocephalic Neck: Yes: WNL, Supple, Trachea Midline Cardiovascular: Yes: Regular Rate and Rhythm Respiratory: Yes: Regular, CTA Bilaterally, Diminished Gastrointestinal: Yes: Normal Bowel Sounds, Soft ...Rectal Exam: Yes: Deferred Renal/: Yes: WNL Pelvis: Yes: WNL External Genitalia: Yes: Normal Internal Exam Deferred: Yes ....Post : Yes: Uterus firm, Uterus non-tender, Slight lochia serosa Breast(s): Yes: WNL (lactating) Edema: Yes Edema: LLE: 1+, RLE: 1+ Integumentary: Yes: WNL Wound/Incision: Yes: Clean/Dry, Well Approximated, Sutures Intact, Open to air Neurological: Yes: WNL, Alert, Oriented ...Motor Strength: WNL Psychiatric: Yes: WNL, Alert, Oriented Labs: CBC, BMP 06/28/19 11:50 06/28/19 11:50 Assessment/Plan 39yo P3 s/p repeat LT C/S and BTL. Pt states feeling better after she was treated with Lasix. She was seen by cardiology and consult is appreciated. Pt was advised to continue pumping. Although the risk through breast milk from Lasix Tx is "not expected", due to no human data available, the pt was advised to pump and dump breast milk for now. Will order LE doppler to r/o DVT. Ambulation bobby. Will follow.
[2019-06-28] MEDS ORDERED: ACETAMINOPHEN 325 MG TABLET (FP) PO PRN (21:27)
[2019-06-28] MEDS: IBUPROFEN 600 MG TABLET (FP) PO PRN (21:32)
[2019-06-28] MEDS: HEPARIN NA (PORCINE) 5,000 UNITS/ML 1ML VIAL SQ SCH (22:23)
[2019-06-29] MEDS: IBUPROFEN 600 MG TABLET (FP) PO PRN ×3 (05:50→22:05)
[2019-06-29] MEDS: HEPARIN NA (PORCINE) 5,000 UNITS/ML 1ML VIAL SQ SCH ×3 (05:51→22:05)
--- NOTE | 2019-06-29 07:51 | PN ---
Progress Note (SOAP) - Subjective History of Present Illness: Patient reports feeling much better. Less SOB when laying flat Pain well controlled with motrin/tylenol No chest pain Pumping without issue - Current Medications Current Medications: Active Medications Acetaminophen (Tylenol -) 650 mg PO Q6H PRN PRN Reason: FEVER Furosemide (Lasix Injection -) 40 mg IVPUSH DAILY CHARANJIT Heparin Sodium (Porcine) (Heparin -) 5,000 unit SQ TID CHARANJIT Last Admin: 06/29/19 05:51 Dose: 5,000 unit Ibuprofen (Motrin -) 600 mg PO Q6H PRN PRN Reason: FEVER Last Admin: 06/29/19 05:50 Dose: 600 mg - Objective Vital Signs: Vital Signs Temperature 97.4 F L 06/29/19 06:00 Pulse Rate 63 06/29/19 06:00 Respiratory Rate 18 06/29/19 06:00 Blood Pressure 132/66 06/29/19 06:00 O2 Sat by Pulse Oximetry (%) 99 06/28/19 21:00 Constitutional: Yes: No Distress, Calm Cardiovascular: Yes: Regular Rate and Rhythm Respiratory: Yes: Regular, CTA Bilaterally Gastrointestinal: Yes: Normal Bowel Sounds, Soft Peripheral Pulses WNL: Yes Edema: No Wound/Incision: Yes: Clean/Dry, Well Approximated ...Motor Strength: Yes: WNL Psychiatric: Yes: WNL Labs Lab Results: CBC, BMP 06/28/19 11:50 06/28/19 11:50 Assessment/Plan 39 yo HD # 2 admitted with cardiomyopathy, s/p Lasix 1. Continue management as per cardiology, patient reports improvement in symptoms 2. Patient currently with supplementation Reviewed Lasix is not well studied in women, diuresis may cause a decrease in breastmilk production Discussed that short-term observations in one study did not show adverse infant effects from maternal use of furosemide in immediate period Encouraged to continue pumping Q 2-3 hours May consider saving breastmilk, diluting with unaffected milk if concerned about exposure 3. Will continue to follow
[2019-06-29 08:35] LABS: BASO % 0.4 % (0-2.0); EOS % 2.4 % (0-4.5); HEMATOCRIT 28.2 % (32.4-45.2); HEMOGLOBIN 9.6 GM/dL (10.7-15.3); LYMPH % 31.8 % (8-40); MCH 30.7 pg (25.7-33.7); MCHC 34.1 g/dl (32.0-36.0); MEAN PLT VOLUME 9.5 fl (7.5-11.1); NEUT % 58.4 % (42.8-82.8); PLATELET COUNT 221 K/MM3 (134-434); RBC 3.14 M/mm3 (3.60-5.2); WHITE BLOOD COUNT 7.4 K/mm3 (4.0-10.0)
[2019-06-29 08:50] LABS: ALBUMIN 2.5 g/dl (3.4-5.0); BILIRUBIN,TOTAL 0.4 mg/dL (0.2-1); BLOOD UREA NITROGEN 19.3 mg/dL (7-18); CALCIUM 8.2 mg/dL (8.5-10.1); CREATININE 0.7 mg/dL (0.55-1.3); MAGNESIUM 1.9 mg/dL (1.8-2.4); PHOSPHOROUS 4.7 mg/dL (2.5-4.9); POTASSIUM 3.5 mmol/L (3.5-5.1); TOT PROT 5.5 g/dl (6.4-8.2)
[2019-06-29] MEDS: FUROSEMIDE 40 MG/4 ML INJECTABLE VIAL IVPUSH SCH (09:31)
--- NOTE | 2019-06-29 11:01 | PN ---
Progress Note (short form) - Note Progress Note: s: feeling better. sob less, no cp palps dizzy Current Medications Generic Name Dose Route Start Last Admin Trade Name Freq PRN Reason Stop Dose Admin Acetaminophen 650 mg 06/28/19 21:27 06/29/19 09:32 Tylenol - PO 650 mg Q6H PRN Administration FEVER Furosemide 40 mg 06/29/19 10:00 06/29/19 09:31 Lasix Injection - IVPUSH 40 mg DAILY CHARANJIT Administration Heparin Sodium (Porcine) 5,000 unit 06/28/19 22:00 06/29/19 05:51 Heparin - SQ 5,000 unit TID CHARANJIT Administration Ibuprofen 600 mg 06/28/19 21:27 06/29/19 05:50 Motrin - PO 600 mg Q6H PRN Administration FEVER pe: Vital Signs Period Temp Pulse Resp BP Sys/Min Pulse Ox Last 24 Hr 97.4 F-98.4 F 46-64 16-20 128-170/66-89 95-99 nad no jvd rrr s1s2 no mrg cta bl nl eff aao3 trace le edema bl, no c/c abd nt nd pos bs no jaundice diaphoresis CBC, BMP 06/29/19 06:53 06/29/19 06:53 cxr: mild congestive changes ecg: sr nl intervals no ischemic changes echo 05/2019: nl lv/rv, mild mr, mild tr, possible bicuspid av, mild-mod ar tele: sr a/p: 39 f no sig pmhx here with sob. sob: -echo shows nl biventricular size/function so does not appear to be cardiomyopathy -she does have some mild volume overload, possibly from periop ivfs or recent so would continue with lasix 40 iv qd, daily chem7. likely can dc iv lasix tomorrow. AR: -echo incidentally shows likely bicuspid av with mild-mod ar. This should be monitored as outpt with cardiology-->discussed further with pt and she reports she has known of this bicuspid av for years but never had it followed by cardiology.
--- NOTE | 2019-06-29 11:33 | EKG ---
Test Reason : Blood Pressure : / mmHG Vent. Rate : 048 BPM Atrial Rate : 048 BPM P-R Int : 144 ms QRS Dur : 072 ms QT Int : 456 ms P-R-T Axes : 005 012 032 degrees QTc Int : 407 ms SINUS BRADYCARDIA CANNOT RULE OUT ANTERIOR INFARCT , AGE UNDETERMINED ABNORMAL ECG NO PREVIOUS ECGS AVAILABLE Confirmed by JESS MARIE, PHILLIP ([id number]) on 06/29/2019 11:33:20 AM Referred By: Confirmed By:PHILLIP MERCADO MD
--- NOTE | 2019-06-29 14:42 | PN ---
Progress Note (short form) - Note Progress Note: Patient is feeling better with no acute distress. no nausea or vomiting. Vital Signs Temperature 97.6 F 06/29/19 10:00 Pulse Rate 58 L 06/29/19 10:00 Respiratory Rate 17 06/29/19 10:00 Blood Pressure 138/72 06/29/19 10:00 O2 Sat by Pulse Oximetry (%) 99 06/29/19 08:01 GENERAL: The patient is awake, alert, and fully oriented, in no acute distress. HEAD: Normal with no signs of trauma. EYES: PERRL, extraocular movements intact, sclera anicteric, conjunctiva clear. ENT: Ears normal, oropharynx clear without exudates, moist mucous membranes. NECK: Trachea midline, full range of motion, supple. LUNGS: Breath sounds equal, clear to auscultation bilaterally, no wheezes, no crackles, no accessory muscle use. HEART: Regular rate and rhythm, S1, S2 without murmur, rub or gallop. ABDOMEN: Soft, nontender, nondistended, normoactive bowel sounds, no guarding, no rebound, no hepatosplenomegaly, no masses. EXTREMITIES: 2+ pulses, warm, well-perfused, no edema. NEUROLOGICAL: Cranial nerves II through XII grossly intact. Normal speech, gait not observed. PSYCH: Normal mood, normal affect. SKIN: Warm, dry, normal turgor, no rashes or lesions noted CBCD WBC 7.4 K/mm3 (4.0-10.0) 06/29/19 06:53 RBC 3.14 M/mm3 (3.60-5.2) L 06/29/19 06:53 Hgb 9.6 GM/dL (10.7-15.3) L 06/29/19 06:53 Hct 28.2 % (32.4-45.2) L 06/29/19 06:53 MCV 90.0 fl (80-96) 06/29/19 06:53 MCHC 34.1 g/dl (32.0-36.0) 06/29/19 06:53 RDW 14.0 % (11.6-15.6) 06/29/19 06:53 Plt Count 221 K/MM3 (134-434) 06/29/19 06:53 MPV 9.5 fl (7.5-11.1) 06/29/19 06:53 CMP Sodium 142 mmol/L (136-145) 06/29/19 06:53 Potassium 3.5 mmol/L (3.5-5.1) 06/29/19 06:53 Chloride 110 mmol/L (98-107) H 06/29/19 06:53 Carbon Dioxide 24 mmol/L (21-32) 06/29/19 06:53 Anion Gap 8 MMOL/L (8-16) 06/29/19 06:53 BUN 19.3 mg/dL (7-18) H 06/29/19 06:53 Creatinine 0.7 mg/dL (0.55-1.3) 06/29/19 06:53 Random Glucose 78 mg/dL (74-106) 06/29/19 06:53 Calcium 8.2 mg/dL (8.5-10.1) L 06/29/19 06:53 Total Bilirubin 0.4 mg/dL (0.2-1) 06/29/19 06:53 AST 18 U/L (15-37) 06/29/19 06:53 ALT 35 U/L (13-61) 06/29/19 06:53 Alkaline Phosphatase 105 U/L (45-117) 06/29/19 06:53 Total Protein 5.5 g/dl (6.4-8.2) L 06/29/19 06:53 Albumin 2.5 g/dl (3.4-5.0) L 06/29/19 06:53 CARDIAC ENZYMES Troponin I < 0.02 ng/ml (0.00-0.05) 06/28/19 11:50 Current Medications Generic Name Dose Route Start Last Admin Trade Name Freq PRN Reason Stop Dose Admin Acetaminophen 650 mg 06/28/19 21:27 06/29/19 09:32 Tylenol - PO 650 mg Q6H PRN Administration FEVER Furosemide 40 mg 06/29/19 10:00 06/29/19 09:31 Lasix Injection - IVPUSH 40 mg DAILY CHARANJIT Administration Heparin Sodium (Porcine) 5,000 unit 06/28/19 22:00 06/29/19 14:04 Heparin - SQ 5,000 unit TID CHARANJIT Administration Ibuprofen 600 mg 06/28/19 21:27 06/29/19 05:50 Motrin - PO 600 mg Q6H PRN Administration FEVER Home Medications Medication Instructions Recorded NK [No Known Home Medication] 06/28/19 Echo:Left ventricular systolic function is normal, EJF=50-55%, LV filling is normal for age, right ventricle is normal is size, mild mitral regurg. mild TR, bicuspid aortic valve briana't be excluded. mild to moderate AR, No pericardial effusion. CXR: A single AP of the chest reveals a weak inspiration with prominent mediastinum, congestive changes and fluid in the horizontal fissure. The bones and soft tissues are intact. Correlation recommended. ASSESSMENT AND PLAN: 39 y/o F with recent + B/L Tubal ligation on 06/21/19 and no other significant PMHx presents with SOB. # Acute shortness of breath ; No CM on the echo. One more dose of IV lasix and possible discharge in am - #Elevated BP: now controlled #Normocytic Normochromic Anemia: Stable #Elevated Alk Phos: stable #PPx -DVT: Heparin SQ Visit type - Emergency Visit Emergency Visit: Yes ED Registration Date: 06/28/19 Care time: The patient presented to the Emergency Department on the above date and was hospitalized for further evaluation of their emergent condition. - New Patient This patient is new to me today: No - Critical Care Critical Care patient: No - Discharge Referral Referred to [facility] No
[2019-06-30] MEDS: HEPARIN NA (PORCINE) 5,000 UNITS/ML 1ML VIAL SQ SCH (06:36)
[2019-06-30 09:24] VITALS: BP 166/71; PULSE 45; TEMP 98.1
[2019-06-30] MEDS: IBUPROFEN 600 MG TABLET (FP) PO PRN (09:26)
[2019-06-30] MEDS: FUROSEMIDE 40 MG/4 ML INJECTABLE VIAL IVPUSH SCH (09:27)
--- NOTE | 2019-06-30 10:59 | PN ---
Progress Note (short form) - Note Progress Note: s: feeling better. sob less, no cp palps dizzy Current Medications Generic Name Dose Route Start Last Admin Trade Name Freq PRN Reason Stop Dose Admin Acetaminophen 650 mg 06/28/19 21:27 06/29/19 09:32 Tylenol - PO 650 mg Q6H PRN Administration FEVER Furosemide 40 mg 06/29/19 10:00 06/30/19 09:27 Lasix Injection - IVPUSH 40 mg DAILY CHARANJIT Administration Heparin Sodium (Porcine) 5,000 unit 06/28/19 22:00 06/30/19 06:36 Heparin - SQ 5,000 unit TID CHARANJIT Administration Ibuprofen 600 mg 06/28/19 21:27 06/30/19 09:26 Motrin - PO 600 mg Q6H PRN Administration FEVER Vital Signs Period Temp Pulse Resp BP Sys/Min Pulse Ox Last 24 Hr 97.6 F-98.3 F 44-64 18-18 143-166/47-77 98 nad no jvd rrr s1s2 no mrg cta bl nl eff aao3 no le e/c/c abd nt nd pos bs no jaundice diaphoresis CBC, BMP 06/29/19 06:53 06/29/19 06:53 cxr: mild congestive changes ecg: sr nl intervals no ischemic changes echo 05/2019: nl lv/rv, mild mr, mild tr, possible bicuspid av, mild-mod ar tele: sr a/p: 39 f no sig pmhx here with sob. sob: -echo shows nl biventricular size/function so does not appear to be cardiomyopathy -she does have some mild volume overload, possibly from periop ivfs or recent so gave several doses of iv lasix. Now vol status improved, pt feeling better. Cardiac rm ok for dc. Can hold off on maintenance diuretics for now. AR: -echo incidentally shows likely bicuspid av with mild-mod ar. This should be monitored as outpt with cardiology-->discussed further with pt and she reports she has known of this bicuspid av for years but never had it followed by cardiology.
--- NOTE | 2019-06-30 12:17 | PN ---
Teaching Attending Note Name of Resident: Gema Stiles ATTENDING PHYSICIAN STATEMENT I saw and evaluated the patient. I reviewed the resident's note and discussed the case with the resident. I agree with the resident's findings and plan as documented. SUBJECTIVE: Patient is lying in bed comfortable with no acute distress. Feels better, no further shortness of breath. OBJECTIVE: Vital Signs Temperature 98.1 F 06/30/19 09:23 Pulse Rate 45 L 06/30/19 09:23 Respiratory Rate 18 06/30/19 09:23 Blood Pressure 166/71 06/30/19 09:23 O2 Sat by Pulse Oximetry (%) 99 06/30/19 09:00 GENERAL: The patient is awake, alert, and fully oriented, in no acute distress. HEAD: Normal with no signs of trauma. EYES: PERRL, extraocular movements intact, sclera anicteric, conjunctiva clear. ENT: Ears normal, oropharynx clear without exudates, moist mucous membranes. NECK: Trachea midline, full range of motion, supple. LUNGS: Breath sounds equal, clear to auscultation bilaterally, no wheezes, no crackles, no accessory muscle use. HEART: bradycardic rate and rhythm, S1, S2 without murmur, rub or gallop. ABDOMEN: Soft, nontender, nondistended, normoactive bowel sounds, no guarding, no rebound, no hepatosplenomegaly, no masses. EXTREMITIES: 2+ pulses, warm, well-perfused, no edema. NEUROLOGICAL: Cranial nerves II through XII grossly intact. Normal speech, gait not observed. PSYCH: Normal mood, normal affect. SKIN: Warm, dry, normal turgor, no rashes or lesions noted CBCD WBC 7.4 K/mm3 (4.0-10.0) 06/29/19 06:53 RBC 3.14 M/mm3 (3.60-5.2) L 06/29/19 06:53 Hgb 9.6 GM/dL (10.7-15.3) L 06/29/19 06:53 Hct 28.2 % (32.4-45.2) L 06/29/19 06:53 MCV 90.0 fl (80-96) 06/29/19 06:53 MCHC 34.1 g/dl (32.0-36.0) 06/29/19 06:53 RDW 14.0 % (11.6-15.6) 06/29/19 06:53 Plt Count 221 K/MM3 (134-434) 06/29/19 06:53 MPV 9.5 fl (7.5-11.1) 06/29/19 06:53 CMP Sodium 142 mmol/L (136-145) 06/29/19 06:53 Potassium 3.5 mmol/L (3.5-5.1) 06/29/19 06:53 Chloride 110 mmol/L (98-107) H 06/29/19 06:53 Carbon Dioxide 24 mmol/L (21-32) 06/29/19 06:53 Anion Gap 8 MMOL/L (8-16) 06/29/19 06:53 BUN 19.3 mg/dL (7-18) H 06/29/19 06:53 Creatinine 0.7 mg/dL (0.55-1.3) 06/29/19 06:53 Random Glucose 78 mg/dL (74-106) 06/29/19 06:53 Calcium 8.2 mg/dL (8.5-10.1) L 06/29/19 06:53 Total Bilirubin 0.4 mg/dL (0.2-1) 06/29/19 06:53 AST 18 U/L (15-37) 06/29/19 06:53 ALT 35 U/L (13-61) 06/29/19 06:53 Alkaline Phosphatase 105 U/L (45-117) 06/29/19 06:53 Total Protein 5.5 g/dl (6.4-8.2) L 06/29/19 06:53 Albumin 2.5 g/dl (3.4-5.0) L 06/29/19 06:53 CARDIAC ENZYMES Troponin I < 0.02 ng/ml (0.00-0.05) 06/28/19 11:50 Echo:Left ventricular systolic function is normal, EJF=50-55%, LV filling is normal for age, right ventricle is normal is size, mild mitral regurg. mild TR, bicuspid aortic valve briana't be excluded. mild to moderate AR, No pericardial effusion. CXR: A single AP of the chest reveals a weak inspiration with prominent mediastinum, congestive changes and fluid in the horizontal fissure. The bones and soft tissues are intact. Correlation recommended. ASSESSMENT AND PLAN: 39 y/o F with recent + B/L Tubal ligation on 06/21/19 and no other significant PMHx presents with SOB. # Acute shortness of breath ; No CM on the echo. last dose of IV lasix today , will discharge the patient today , ok'd by , and no further Lasix to go home with. will discharge the patient. - #Elevated BP: Uncontrolled , will add hydralazine 10mg po bid, since it's safe with breath feeding, cardiology agrees for starting her on Hydrazine 10mg po bid , follow up with cardiology within a week. #Normocytic Normochromic Anemia: Stable #Elevated Alk Phos: stable
--- NOTE | 2019-06-30 12:58 | PN ---
Physical Exam: SUBJECTIVE: Patient seen and examined. Patient was laying comfortably with no acute complaints. OBJECTIVE: Vital Signs Period Temp Pulse Resp BP Sys/Min Pulse Ox Last 24 Hr 97.6 F-98.3 F 44-64 18-18 143-166/47-77 98-99 GENERAL: The patient is awake, alert, and fully oriented, in no acute distress. HEAD: Normal with no signs of trauma. LUNGS: Breath sounds equal, clear to auscultation bilaterally, no wheezes, no crackles, no accessory muscle use. HEART: Regular rate and rhythm, S1, S2 without murmur, rub or gallop. ABDOMEN: Soft, nontender, nondistended, normoactive bowel sounds, no guarding, no rebound, no hepatosplenomegaly, no masses. EXTREMITIES: 2+ pulses, warm, well-perfused, no edema. NEUROLOGICAL: Cranial nerves II through XII grossly intact. Normal speech, gait not observed. PSYCH: Normal mood, normal affect. SKIN: Warm, dry, normal turgor, no rashes or lesions noted ASSESSMENT/PLAN: ATTENDING PHYSICIAN STATEMENT I saw and evaluated the patient. I reviewed the resident's note and discussed the case with the resident. I agree with the resident's findings and plan as documented. SUBJECTIVE: OBJECTIVE: ASSESSMENT AND PLAN:
--- NOTE | 2019-06-30 13:00 | DS ---
Physical Exam: SUBJECTIVE: Patient seen and examined. Patient is laying comfortably in bed with no acute complaints. OBJECTIVE: Vital Signs Period Temp Pulse Resp BP Sys/Min Pulse Ox Last 24 Hr 97.6 F-98.3 F 44-64 18-18 143-166/47-77 98-99 PHYSICAL EXAM GENERAL: The patient is awake, alert, and fully oriented, in no acute distress. HEAD: Normal with no signs of trauma. ENT: moist mucous membranes. NECK: supple. LUNGS: Breath sounds equal, clear to auscultation bilaterally, no wheezes, no crackles, no accessory muscle use. HEART: Regular rate and rhythm, S1, S2 without murmur, rub or gallop. ABDOMEN: Soft, nontender, nondistended, normoactive bowel sounds, no guarding, no rebound, no hepatosplenomegaly, no masses. EXTREMITIES: 2+ pulses, warm, well-perfused, no edema. LABS CBC, BMP 06/29/19 06:53 06/29/19 06:53 Chest Xray 06/28/19 A single AP of the chest reveals a weak inspiration with prominent mediastinum, congestive changes and fluid in the horizontal fissure. The bones and soft tissues are intact. Correlation recommended. Vascular study 06/28/19 No DVT is identified involving either leg. Please see above. Echo 06/28/19 LV & RV function and size are normal. EF 50-55%. mild MR, mild TR, bicuspid aortic valve cannot be excluded. Mild to moderate AR Chest Xray 06/30/19 Large heart. Congestive changes. HOSPITAL COURSE: Date of Admission:06/28/19 39 y/o F with recent + B/L Tubal ligation on 06/21/19 and no other significant PMHx presents with SOB since her delivery. In the ED she received IV Furosemide 40 mg daily, SL Nitro after which her symptoms began to improve. Cardio was consulted and motorcycle police as well.Chest Xray on 06/28/19 showed congestive changes. ECG showed sinus bradicardia and echo on 06/28/19 showed normal biventricular size/function which r/o cardiomyopathy but however did have some mild volume overload, possibly from perioperative IVFs or recent . The echo incidentally showed likely bicuspid AV with mild-mod AR. This should be monitored as outpatient with cardiology.CBC and CMP were also ordered with a BNP finding of 1189.4.Vascular study for DVT was negative. Patient is to follow up outpatient at [facility] with Dr Barrett in one week as well as Dr Shane tattoo technician in one week. Pt was sent with Hydralizine 10 mg BID for one month 2/2 elevated blood pressure during stay. Date of Discharge: 06/30/19 Minutes to complete discharge: 20 Discharge Summary Reason For Visit: CARDIOMYOPATHY Condition: Stable - Instructions Diet, Activity, Other Instructions: You came into the ED because of shortness of breath since your delivery. We took pictures of your chest which showed that your heart is enlarged. We also did an ultrasound of your heart and it incidentally showed bicuspid aortic valve with mild to moderate aortic regurgitation.This should be monitored as outpatient with cardiology. You were seen by both cost estimating manager and Cardiology while you were here. Your symptoms have significantly improved and you are stable enough to be discharged home. Medications: We are sending you home with NO new medications. Follow up: We are referring you to the [facility] at [address] [place] [address] to establish care with a primary physician Please follow up with the tattoo technician Dr Shane, within one week If you begin to experience bleeding, new/worsening shortness of breath, chest pain, fevers, nausea/vomiting please come back to the emergency room immediately. Referrals: Saji Barrett MD [Staff Physician] - 1 Week Carlton Shane MD [Staff Physician] - 1 Week Disposition: HOME - Home Medications Comprehensive Discharge Medication List: Ambulatory Orders NK [No Known Home Medication] 06/28/19 Problem List - Problems (1) cardiomyopathy Code(s): O90.3 - PERIPARTUM CARDIOMYOPATHY This patient is new to me today: Yes Date on this admission: 06/30/19 Emergency Visit: Yes ED Registration Date: 06/28/19 Care time: The patient presented to the Emergency Department on the above date and was hospitalized for further evaluation of their emergent condition. Critical Care patient: No - Discharge Referral Referred to [facility] Med P.C.: No ATTENDING PHYSICIAN STATEMENT I saw and evaluated the patient. I reviewed the resident's note and discussed the case with the resident. I agree with the resident's findings and plan as documented. SUBJECTIVE: OBJECTIVE: ASSESSMENT AND PLAN:
== END 2019-06-30 11:53 | disposition home or self-care (01) | DRG 776 ==
LOC: JER 10:48 → JERBED 13:37 → J4W 15:34
PROVIDERS: ADMIT Internal Medicine; ATTEND Internal Medicine
DX: O90.3 Peripartum cardiomyopathy (principal); E87.70 Fluid overload, unspecified; D64.9 Anemia, unspecified
CPT/HCPCS: 36415; 71045-TC-FY; 80053; 81003; 83735; 83880; 84100; 84484; 84703; 85025; 87086; 93005; 93010; 93306-TC; 93970-TC; 94010; 99284-25; J1644